=== PATIENT | male | born 1940 | race Caucasian/White ===

== ENCOUNTER → 2020-03-23 | Outpatient (CLI) | payer MEDICARE, OTHER ==
[2020-03-23 14:29] LABS: BASOPHILS # (AUTO) 0.2 X10'3 (0-0.2); BASOPHILS % (AUTO) 1.7 % (0-1); EOSINOPHILS # (AUTO) 0.1 X10'3 (0-0.9); EOSINOPHILS % (AUTO) 1.1 % (0-6); HEMATOCRIT 25.9 % (42.0-52.0); HEMOGLOBIN 8.8 g/dl (14.0-17.9); LYMPHOCYTES # (AUTO) 1.4 X10'3 (1.1-4.8); LYMPHOCYTES % (AUTO) 15.7 % (21-51); MEAN CORPUSCULAR HEMOGLOBIN 29.3 PG (27.0-31.0); MEAN CORPUSCULAR HGB CONC 34.2 g/dL (33.0-36.5); MEAN CORPUSCULAR VOLUME 85.8 FL (78-98); MEAN PLATELET VOLUME 7.3 FL (7.4-10.4); MONOCYTES # (AUTO) 0.7 X10'3 (0-0.9); MONOCYTES % (AUTO) 7.7 % (2-12); NEUTROPHILS # (AUTO) 6.7 X10'3 (1.8-7.7); NEUTROPHILS % (AUTO) 73.8 % (42-75); PLATELET COUNT 327 X10'3 (140-440); RED BLOOD COUNT 3.01 X10'6 (4.70-6.10); RED CELL DISTRIBUTION WIDTH 16.8 % (11.5-14.5)
[2020-03-23 14:42] LABS: ALANINE AMINOTRANSFERASE 15 U/L (12-78); ALBUMIN 3.3 G/DL (3.4-5.0); ALBUMIN/GLOBULIN RATIO 0.8 (1.1-1.5); ALKALINE PHOSPHATASE 67 IU/L (46-116); ANION GAP 9 (8-16); ASPARTATE AMINO TRANSFERASE 19 U/L (10-37); BILIRUBIN,TOTAL 0.2 MG/DL (0.1-1.0); BLOOD UREA NITROGEN 61 MG/DL (7-18); BUN/CREATININE RATIO 19.4 (5.4-32.0); CALCIUM 8.3 MG/DL (8.5-10.1); CHLORIDE 103 MMOL/L (99-107); CREATININE 3.14 MG/DL (0.60-1.10); GLUCOSE 116 MG/DL (70-104); PARTIAL THROMBOPLASTIN TIME 30 SECONDS (22-32); POTASSIUM 5.1 MMOL/L (3.5-5.1); SODIUM 133 MMOL/L (135-145); TOTAL CARBON DIOXIDE 20.7 MMOL/L (24-32); TOTAL PROTEIN 7.4 G/DL (6.4-8.2); eGFR 19 ML/MIN
== END | disposition home or self-care (01) ==
LOC: LAB 13:39
PROVIDERS: ATTEND Internal Medicine Cardiovascular Disease
DX: R07.9 Chest pain, unspecified (principal); R06.02 Shortness of breath
CPT/HCPCS: 36415; 71046; 80053; 85025; 85610; 85730

== ENCOUNTER 2020-03-28 09:11 | Day surgery (SDC) | payer MEDICARE, OTHER ==
[~2020-03-28] VITALS: Ht 172.7 cm; Wt 69.4 kg
[2020-03-28] VITALS (11 sets, daily range): BP systolic 142–178; BP diastolic 54–72
[2020-03-28] MEDS ORDERED: normal saline 1,000 ML IV SCH (09:40)
[2020-03-28] MEDS ORDERED: LORazepam 0.5 MG tablet PO PRN (09:40)
[2020-03-28] MEDS ORDERED: diphenhydrAMINE 25mg capsule PO PRN (09:40)
[2020-03-28] MEDS ORDERED: nitroGLYCERIN 0.4mg SUBLingual tab SL PRN (09:40)
[2020-03-28] MEDS ORDERED: CIPR250T4 PO (11:10)
[2020-03-28] MEDS ORDERED: SODI650T29 PO (11:10)
[2020-03-28] MEDS ORDERED: NITR1PAT68 SL (11:10)
[2020-03-28] MEDS ORDERED: AMLO10TA13 PO (11:10)
[2020-03-28] MEDS ORDERED: FLO0.4C PO (11:10)
[2020-03-28] MEDS ORDERED: EPOE200015 (11:10)
[2020-03-28] MEDS ORDERED: ALBU8.5H8 INH (11:10)
[2020-03-28] MEDS ORDERED: LOSA25TA41 PO (11:10)
[2020-03-28] MEDS ORDERED: midazolam 2 mg/2 ml injection ONE (14:06)
[2020-03-28] MEDS ORDERED: LIDOcaine 1% (10mg/ml)w/preservative injection 20ml MDV ONE (14:06)
[2020-03-28] MEDS ORDERED: fentaNYL/PF 50MCG/1 ML 2ML syringe ONE (14:06)
[2020-03-28] MEDS ORDERED: iohexol 350MG/ML 100ml bottle IV ONE (14:06)
[2020-03-28] MEDS ORDERED: iohexol 350 MG/ML 50ML vial IV ONE ×3 (14:06→15:01)
[2020-03-28] MEDS ORDERED: hydrALAZINE 20mg/ml inj. IV ONE ×2 (15:13→15:27)
[2020-03-28] MEDS ORDERED: OXAZEpam 15mg capsule PO PRN (16:10)
[2020-03-28] MEDS ORDERED: HYDROcodone/acetaminophen 5mg/325mg tablet PO PRN (16:10)
[2020-03-28] MEDS ORDERED: HYDROcodone/acetaminophen 10/325mg tab PO PRN (16:10)
[2020-03-28] MEDS ORDERED: ondansetron/PF 4mg/2ml inj IV PRN (16:10)
[2020-03-28] MEDS ORDERED: proCHLORperazine 10 MG/2 ml inj IV PRN (16:10)
== END 2020-03-28 21:00 | disposition home or self-care (01) ==
LOC: SSTAY O 09:11
PROVIDERS: ATTEND Internal Medicine Cardiovascular Disease
DX: R94.39 Abnormal result of other cardiovascular function study (principal); I25.118 Atherosclerotic heart disease of native coronary artery with other forms of angina pectoris; I25.82 Chronic total occlusion of coronary artery; K21.9 Gastro-esophageal reflux disease without esophagitis; I12.0 Hypertensive chronic kidney disease with stage 5 chronic kidney disease or end stage renal disease; N18.5 Chronic kidney disease, stage 5; J44.9 Chronic obstructive pulmonary disease, unspecified; N40.1 Benign prostatic hyperplasia with lower urinary tract symptoms; N13.8 Other obstructive and reflux uropathy; D63.8 Anemia in other chronic diseases classified elsewhere; M19.90 Unspecified osteoarthritis, unspecified site; Z98.890 Other specified postprocedural states; Z88.7 Allergy status to serum and vaccine; Z79.899 Other long term (current) drug therapy; Z87.891 Personal history of nicotine dependence; F12.90 Cannabis use, unspecified, uncomplicated
CPT/HCPCS: 75630; 93005; 93458; 99152; 99153; C1769; J0360; J1644; J2001; J2250; J3010; J7030; Q0163; Q9967; A4620; A6258

== ENCOUNTER 2020-04-10 10:36 | Inpatient (IN) | payer MEDICARE, OTHER ==
[~2020-04-10] VITALS: Ht 174 cm; Wt 82.5 kg
[~2020-04-10 10:36] MED LIST: ALBU8.5H8 INH; AMLO10TA13 PO; CIPR250T4 PO; EPOE200015; FLO0.4C PO; LIDOcaine 2% (20 mg/ml) 5ml cardiac syringe ONE; LOSA25TA41 PO; MAGNESIUM SULFATE 4 MEQ/ML (5gm/10ml) injection ONE; NITR1PAT68 SL; SODI650T29 PO; albumin (human) 25% 100 ML IV solution IV ONE; aminocaproic acid 250 MG/1 ML inj. ONE; calcium chloride 100 MG/1 ML inj IV ONE; heparin 1,000 units/ml 10ml inj ONE; heparin 10,000 units/1 ML INJ ONE; methylPREDNISolone sod. succ. 500mg inj ONE; papaverine 30 mg/ml 2ml inj. ONE; phenylephrine 10mg/ml inj. ONE; potassium Cl 2 mEq/ml inj IV ONE; sodium bicarbonate (8.4%) 1 mEq/ml syringe ONE
[2020-04-10] MEDS ORDERED: aspirin 81mg tab.chew PO ONE (11:00)
[2020-04-10 11:26] LABS: BASOPHILS # (AUTO) 0.1 X10'3 (0-0.2); BASOPHILS % (AUTO) 1.3 % (0-1); EOSINOPHILS # (AUTO) 0.2 X10'3 (0-0.9); EOSINOPHILS % (AUTO) 2.8 % (0-6); HEMATOCRIT 25.7 % (42.0-52.0); HEMOGLOBIN 8.6 g/dl (14.0-17.9); LYMPHOCYTES # (AUTO) 1.2 X10'3 (1.1-4.8); LYMPHOCYTES % (AUTO) 13.3 % (21-51); MEAN CORPUSCULAR HEMOGLOBIN 28.8 PG (27.0-31.0); MEAN CORPUSCULAR HGB CONC 33.6 g/dL (33.0-36.5); MEAN CORPUSCULAR VOLUME 85.8 FL (78-98); MONOCYTES # (AUTO) 0.9 X10'3 (0-0.9); MONOCYTES % (AUTO) 9.9 % (2-12); NEUTROPHILS # (AUTO) 6.3 X10'3 (1.8-7.7); NEUTROPHILS % (AUTO) 72.7 % (42-75); PLATELET COUNT 321 X10'3 (140-440); RED BLOOD COUNT 2.99 X10'6 (4.70-6.10); RED CELL DISTRIBUTION WIDTH 18.1 % (11.5-14.5); WHITE BLOOD COUNT 8.7 X10'3 (4.5-11.0)
--- NOTE | 2020-04-10 11:35 | NUR ---
relieving RN for break, pt is resting quietly on [facility], no c/o chest pain/discomfort, was referred to ER by Dr Liz, pt thinks he is having a bypass surgery on , but is not sure
[2020-04-10 11:41] LABS: ALANINE AMINOTRANSFERASE 17 U/L (12-78); ALBUMIN 3.6 G/DL (3.4-5.0); ALKALINE PHOSPHATASE 58 IU/L (46-116); ANION GAP 9 (8-16); ASPARTATE AMINO TRANSFERASE 17 U/L (10-37); BILIRUBIN,TOTAL 0.3 MG/DL (0.1-1.0); BLOOD UREA NITROGEN 50 MG/DL (7-18); BUN/CREATININE RATIO 16.6 (5.4-32.0); CALCIUM 8.5 MG/DL (8.5-10.1); CHLORIDE 105 MMOL/L (99-107); CREATININE 3.01 MG/DL (0.60-1.10); GLUCOSE 101 MG/DL (70-104); POTASSIUM 5.5 MMOL/L (3.5-5.1); SODIUM 132 MMOL/L (135-145); TOTAL CARBON DIOXIDE 17.6 MMOL/L (24-32); TOTAL PROTEIN 7.2 G/DL (6.4-8.2); eGFR 20 ML/MIN
--- NOTE | 2020-04-10 11:49 | NUR ---
attempted IV x2, no success, another RN to try
[2020-04-10] MEDS ORDERED: potassium Cl 20 mEq SR tablet PO PRN ×2 (12:25)
[2020-04-10] MEDS ORDERED: magnesium 4gm in 100ml NS 100 ML IV PRN (12:25)
[2020-04-10] MEDS ORDERED: acetaminophen 325mg tablet PO PRN (12:25)
[2020-04-10] MEDS ORDERED: morphine 2 MG/ML inj. syringe IV PRN (12:25)
[2020-04-10] MEDS ORDERED: magnesium Cl slow-release 64mg tablet PO PRN (12:25)
[2020-04-10] MEDS ORDERED: magnesium 2GM in 50ml NS 50 ML IV PRN (12:25)
[2020-04-10] MEDS ORDERED: ondansetron/PF 4mg/2ml inj IV PRN (12:25)
[2020-04-10] MEDS ORDERED: potassium CL 10mEq/100ml bag 100 ML IV PRN ×2 (12:25)
[2020-04-10] MEDS ORDERED: SODI650T29 PO (12:40)
[2020-04-10] MEDS ORDERED: HYDR-4069 PO (12:40)
[2020-04-10] MEDS ORDERED: ALBU18HF2 INH (12:47)
--- NOTE | 2020-04-10 15:00 | NUR ---
Patient in room PCU 3014. I have received report from Win RICHARD, awaiting arrival of patient.
--- NOTE | 2020-04-10 15:02 | NUR ---
Patient arrived in stable condition. Pt. offers no complaints at this time. Pt. assessment, 2 RN skin check completed. Placed on tele and patient assessment completed.
[2020-04-10] MEDS ORDERED: hydrALAZINE 20mg/ml inj. IV ONE (15:45)
--- NOTE | 2020-04-10 16:01 | NUR ---
MD notified regarding elevated SBP of 177, new orders to administer hydralazine 5 mg IVP X 1 dose. Administered, will re-assess.
[2020-04-10 16:09] VITALS: BP 177/74
--- NOTE | 2020-04-10 17:19 | NUR ---
Re-assessment of BP is 162/62, trending down. Post void residual was 852 cc's, strath cath'd per MD order. 820 cc's drained. UA sent per MD order.
[2020-04-10] MEDS: sodium bicarbonate (8.4%) inj. 100 MEQ in dextrose 5%-water 1,000 ML IV SCH (17:39)
[2020-04-10 18:00] VITALS: BP 162/61
[2020-04-10 18:14] LABS: CLARITY,URINE CLEAR (Clear); COLOR,URINE YELLOW (Yellow); GLUCOSE, URINE NEGATIVE (Neg); KETONES,URINE NEGATIVE (Neg); LEUKOCYTE ESTERASE ,URINE TRACE (Neg); NITRITES, URINE NEGATIVE (Neg); OCCULT BLOOD,URINE NEGATIVE (Neg); PROTEIN,URINE 100 mg/dl (Neg); UROBILINOGEN,URINE 0.2 E.U/dL (0.2-1.0)
[2020-04-10 18:19] LABS: UA COLLECTION TYPE CLN CATCH MIDSTREAM
--- NOTE | 2020-04-10 18:19 | NUR ---
Problems reprioritized. Patient report given, questions answered & plan of care reviewed with Sulaiman RICHARD. Pt. offers no complaints. Watching t.v. in no distress.
--- NOTE | 2020-04-10 18:23 | NUR ---
Patient in room PCU 3028. I have received report from Lucy RICHARD and had the opportunity to ask questions and assume patient care. Patient awake on bedside report, on sodium bicarb 100 ml/hr and on room air. Patient in no apparent distress.
[2020-04-10 18:37] LABS: BACTERIA,URINE 3+ /HPF (Neg); RBC,URINE NONE SEEN /HPF (0-2); SQUAMOUS EPITHELIAL CELL,UR NONE SEEN /LPF (FEW)
[2020-04-10 18:47] LABS: TOTAL PROTEIN,URINE RANDOM 77.6 MG/DL
[2020-04-10] MEDS: heparin, porcine 5000 units/ml vial SQ SCH (19:46)
[2020-04-10] MEDS: docusate sod 100mg capsule PO SCH (19:49)
[2020-04-10] MEDS: K and/or MAG REPLACEMENT MC SCH (20:00)
[2020-04-10 22:00] VITALS: BP 152/58
[2020-04-11] VITALS (11 sets, daily range): BP systolic 141–193; BP diastolic 53–72
[2020-04-11 05:13] LABS: ALANINE AMINOTRANSFERASE 13 U/L (12-78); ALBUMIN/GLOBULIN RATIO 0.9 (1.1-1.5); ALKALINE PHOSPHATASE 54 IU/L (46-116); ANION GAP 10 (8-16); ASPARTATE AMINO TRANSFERASE 15 U/L (10-37); BILIRUBIN,TOTAL 0.3 MG/DL (0.1-1.0); BLOOD UREA NITROGEN 49 MG/DL (7-18); CALCIUM 8.5 MG/DL (8.5-10.1); CHLORIDE 105 MMOL/L (99-107); CREATININE 2.88 MG/DL (0.60-1.10); GLUCOSE 93 MG/DL (70-104); POTASSIUM 5.3 MMOL/L (3.5-5.1); SODIUM 133 MMOL/L (135-145); TOTAL CARBON DIOXIDE 18.3 MMOL/L (24-32); TOTAL PROTEIN 6.3 G/DL (6.4-8.2); eGFR 21 ML/MIN
[2020-04-11 05:32] LABS: BASOPHILS # (AUTO) 0.1 X10'3 (0-0.2); BASOPHILS % (AUTO) 1.3 % (0-1); EOSINOPHILS # (AUTO) 0.4 X10'3 (0-0.9); EOSINOPHILS % (AUTO) 5.4 % (0-6); HEMATOCRIT 22.8 % (42.0-52.0); HEMOGLOBIN 7.9 g/dl (14.0-17.9); LYMPHOCYTES # (AUTO) 1.1 X10'3 (1.1-4.8); LYMPHOCYTES % (AUTO) 15.2 % (21-51); MEAN CORPUSCULAR HEMOGLOBIN 29.4 PG (27.0-31.0); MEAN CORPUSCULAR HGB CONC 34.4 g/dL (33.0-36.5); MEAN CORPUSCULAR VOLUME 85.5 FL (78-98); MEAN PLATELET VOLUME 7.1 FL (7.4-10.4); MONOCYTES # (AUTO) 0.7 X10'3 (0-0.9); MONOCYTES % (AUTO) 10.6 % (2-12); NEUTROPHILS # (AUTO) 4.7 X10'3 (1.8-7.7); NEUTROPHILS % (AUTO) 67.5 % (42-75); PLATELET COUNT 290 X10'3 (140-440); RED BLOOD COUNT 2.67 X10'6 (4.70-6.10); RED CELL DISTRIBUTION WIDTH 17.4 % (11.5-14.5)
--- NOTE | 2020-04-11 05:37 | NUR ---
Called provider August for bladder scan of greater than 650 ml and was advised to straight catheterize patient. 750 ml of urine was retrieved from straight catheterization.
[2020-04-11] MEDS: sodium bicarbonate (8.4%) inj. 100 MEQ in dextrose 5%-water 1,000 ML IV SCH ×3 (05:50→22:18)
--- NOTE | 2020-04-11 06:38 | NUR ---
Patient in room PCU 3028. I have received report from Glen RICHARD and had the opportunity to ask questions and assume patient care.
--- NOTE | 2020-04-11 06:39 | NUR ---
Problems reprioritized. Patient report given, questions answered & plan of care reviewed with Jane RICHARD.
--- NOTE | 2020-04-11 07:09 | NUR ---
Paged [facility] for line due to hard stick and No forearm lines Re: Aakash Isaacs Rm [id number]. We are needing a line hard stick and no forearm usage. Please and Thank you Jane RICHARD [id number] Addendum: 04/11/20 at 0908 by Jane Mayorga RN Canceled per IV flushed
[2020-04-11] MEDS ORDERED: MESSAGE TO NURSING PO ONE ×5 (07:10→10:00)
[2020-04-11] MEDS ORDERED: dextrose 50%-water 50ml dispensing syringe IV PRN (07:10)
[2020-04-11] MEDS ORDERED: magnesium 2GM in 50ml NS 50 ML IV PRN (07:10)
[2020-04-11] MEDS ORDERED: potassium Cl 20mEq/100mL bag 100 ML IV PRN (07:10)
[2020-04-11] MEDS ORDERED: magnesium 4gm in 100ml NS 100 ML IV PRN (07:10)
[2020-04-11] MEDS ORDERED: potassium Cl 20 mEq SR tablet PO PRN (07:10)
[2020-04-11] MEDS: docusate sod 100mg capsule PO SCH ×2 (08:00→20:10)
[2020-04-11] MEDS: K and/or MAG REPLACEMENT MC SCH ×2 (08:00→20:00)
[2020-04-11] MEDS: heparin, porcine 5000 units/ml vial SQ SCH ×2 (08:26→20:09)
--- NOTE | 2020-04-11 09:09 | NUR ---
Problems reprioritized. Patient report given, questions answered & plan of care reviewed with AMALIA RICHARD in [facility] unit. Patient stable for transfer, transferred via wheelchair and Nurse.
--- NOTE | 2020-04-11 10:37 | NUR ---
PAGER ID: [phone] MESSAGE: rm 316. pt. Aakash Isaacs. pt. needs med rec done. pt. BP is also elevated. last BP was 189/78. please advise. Piedad [id number]
[2020-04-11] MEDS ORDERED: albuterol 2.5 MG/3 ML nebule NEB PRN (10:55)
[2020-04-11 11:05] LABS: ABG BASE EXCESS -5.1 mmol/L (-2.0-2.0); ABG HCO3 18.9 mmol/L (22.0-26.0); ALLEN'S TEST POSITIVE; FCOHb 0.2 % (0.0-3.9); FMetHb 0.1 % (0.0-1.5); FO2Hb 96.7 % (94-97); TOTAL HEMOGLOBIN 8.7 G/dl (14.0-18.0)
--- NOTE | 2020-04-11 11:05 | NUR ---
PAGER ID: [phone] MESSAGE: 316. pt. Aakash Isaacs. pt. BP is still climbing. it's 200/68. can we get a PRN or start his BP meds today? thank you. Piedad [id number]
[2020-04-11 11:30] LABS: PARTIAL THROMBOPLASTIN TIME 32 SECONDS (22-32)
[2020-04-11] MEDS ORDERED: hydrALAZINE 20mg/ml inj. IV PRN (11:30)
[2020-04-11 11:41] LABS: % IRON SATURATION 38 % (11-46); IRON 87 UG/DL (53-167); TOTAL IRON BINDING CAPACITY 231 UG/DL (259-388)
[2020-04-11] MEDS: tamsulosin 0.4mg capsule PO SCH (11:46)
[2020-04-11] MEDS: hydrALAZINE 25 MG tablet PO SCH ×2 (11:46→20:10)
[2020-04-11] MEDS: losartan 25mg tablet PO SCH (11:47)
[2020-04-11] MEDS: amLODIPine 5mg tablet PO SCH (11:47)
--- NOTE | 2020-04-11 18:28 | NUR ---
Problems reprioritized. Patient report given, questions answered & plan of care reviewed with HILARY Vale.
--- NOTE | 2020-04-11 18:30 | NUR ---
Patient in room MED 316. I have received report from Jenny, and had the opportunity to ask questions and assume patient care.
[2020-04-11] MEDS ORDERED: hydrALAZINE 25 MG tablet PO SCH (20:00)
[2020-04-11 20:50] LABS: HEMATOCRIT 26.7 % (42.0-52.0); HEMOGLOBIN 9.1 g/dl (14.0-17.9); MEAN CORPUSCULAR HGB CONC 34.2 g/dL (33.0-36.5); MEAN CORPUSCULAR VOLUME 84.8 FL (78-98); MEAN PLATELET VOLUME 6.9 FL (7.4-10.4); PLATELET COUNT 264 X10'3 (140-440); RED BLOOD COUNT 3.15 X10'6 (4.70-6.10)
[2020-04-12] VITALS (8 sets, daily range): BP systolic 154–170; BP diastolic 56–103
[2020-04-12 05:56] LABS: ALANINE AMINOTRANSFERASE 12 U/L (12-78); ALBUMIN 2.8 G/DL (3.4-5.0); ALBUMIN/GLOBULIN RATIO 0.8 (1.1-1.5); ALKALINE PHOSPHATASE 51 IU/L (46-116); ANION GAP 7 (8-16); ASPARTATE AMINO TRANSFERASE 15 U/L (10-37); BILIRUBIN,TOTAL 0.5 MG/DL (0.1-1.0); BLOOD UREA NITROGEN 44 MG/DL (7-18); BUN/CREATININE RATIO 15.8 (5.4-32.0); CALCIUM 8.4 MG/DL (8.5-10.1); CHLORIDE 104 MMOL/L (99-107); CREATININE 2.79 MG/DL (0.60-1.10); GLUCOSE 97 MG/DL (70-104); MAGNESIUM 1.9 MG/DL (1.5-2.4); POTASSIUM 5.1 MMOL/L (3.5-5.1); SODIUM 134 MMOL/L (135-145); TOTAL CARBON DIOXIDE 22.7 MMOL/L (24-32); TOTAL PROTEIN 6.1 G/DL (6.4-8.2); eGFR 22 ML/MIN
[2020-04-12 06:04] LABS: BASOPHILS # (AUTO) 0.1 X10'3 (0-0.2); BASOPHILS % (AUTO) 1.3 % (0-1); EOSINOPHILS # (AUTO) 0.3 X10'3 (0-0.9); EOSINOPHILS % (AUTO) 4.8 % (0-6); HEMATOCRIT 26.9 % (42.0-52.0); HEMOGLOBIN 9.3 g/dl (14.0-17.9); LYMPHOCYTES # (AUTO) 1.2 X10'3 (1.1-4.8); LYMPHOCYTES % (AUTO) 16.6 % (21-51); MEAN CORPUSCULAR HEMOGLOBIN 29.5 PG (27.0-31.0); MEAN CORPUSCULAR HGB CONC 34.5 g/dL (33.0-36.5); MEAN CORPUSCULAR VOLUME 85.6 FL (78-98); MEAN PLATELET VOLUME 7.2 FL (7.4-10.4); MONOCYTES # (AUTO) 0.9 X10'3 (0-0.9); MONOCYTES % (AUTO) 12.4 % (2-12); NEUTROPHILS # (AUTO) 4.6 X10'3 (1.8-7.7); NEUTROPHILS % (AUTO) 64.9 % (42-75); PLATELET COUNT 247 X10'3 (140-440); RED BLOOD COUNT 3.14 X10'6 (4.70-6.10); RED CELL DISTRIBUTION WIDTH 16.8 % (11.5-14.5); WHITE BLOOD COUNT 7.1 X10'3 (4.5-11.0)
--- NOTE | 2020-04-12 06:06 | NUR ---
Problems reprioritized. Patient report given to Ciara, questions answered & plan of care reviewed with .
--- NOTE | 2020-04-12 06:30 | NUR ---
Patient in room MED 316. I have received report from HILARY varela and had the opportunity to ask questions and assume patient care.
[2020-04-12] MEDS ORDERED: losartan 25mg tablet PO SCH (08:00)
[2020-04-12] MEDS ORDERED: amLODIPine 5mg tablet PO SCH (08:00)
[2020-04-12] MEDS: heparin, porcine 5000 units/ml vial SQ SCH ×2 (08:00→19:49)
[2020-04-12] MEDS: docusate sod 100mg capsule PO SCH ×2 (08:00→19:49)
[2020-04-12] MEDS: K and/or MAG REPLACEMENT MC SCH ×2 (08:00→19:52)
[2020-04-12] MEDS: tamsulosin 0.4mg capsule PO SCH (08:00)
[2020-04-12] MEDS: amLODIPine 5mg tablet PO SCH (08:01)
[2020-04-12] MEDS: hydrALAZINE 25 MG tablet PO SCH ×2 (08:02→19:49)
[2020-04-12] MEDS: losartan 25mg tablet PO SCH (08:02)
[2020-04-12] MEDS: sodium bicarbonate (8.4%) inj. 100 MEQ in dextrose 5%-water 1,000 ML IV SCH (11:39)
[2020-04-12] MEDS ORDERED: Insulin Reg/NS 100units/100mL 100 ML IV SCH (12:51)
[2020-04-12] MEDS ORDERED: potassium Cl 20 mEq SR tablet PO PRN (12:55)
[2020-04-12] MEDS ORDERED: gabapentin 400mg capsule PO ONE (12:55)
[2020-04-12] MEDS ORDERED: magnesium 2GM in 50ml NS 50 ML IV PRN (12:55)
[2020-04-12] MEDS ORDERED: MALTODEXTRIN/FRUCTOSE 0.68 KCAL/ML LIQUID 296ML BOTTLE PO ONE (12:55)
[2020-04-12] MEDS ORDERED: potassium CL 10mEq/100ml bag 100 ML IV PRN (12:55)
[2020-04-12] MEDS ORDERED: magnesium 4gm in 100ml NS 100 ML IV PRN (12:55)
[2020-04-12] MEDS ORDERED: insulin glargine (Lantus) pen - multi-dose SQ PRN (12:55)
[2020-04-12] MEDS ORDERED: dextrose 50%-water 50ml dispensing syringe IV PRN (12:55)
[2020-04-12] MEDS ORDERED: potassium Cl 20mEq/100mL bag 100 ML IV PRN (12:55)
[2020-04-12] MEDS ORDERED: MESSAGE TO NURSING PO ONE ×4 (12:55)
--- NOTE | 2020-04-12 13:54 | NUR ---
Wound care was consulted regarding a "generalized rash" of concern on this pt. At bedside, pt gave consent to be examined but stated he had no skin issues to note. He has no ALOC and moves well in bed. No skin issues were identified on examination and no photos are present in chart. Genital/rosario/groin assessment deferred as pt is of sound mind and states no concern in these areas. No wound care needs at this time
--- NOTE | 2020-04-12 18:30 | NUR ---
Problems reprioritized. Patient report given, questions answered & plan of care reviewed with HILARY Borges.
--- NOTE | 2020-04-12 19:03 | NUR ---
Patient in room MED 316. I have received report from Cathi RICHARD and had the opportunity to ask questions and assume patient care.
[2020-04-12] MEDS ORDERED: mupirocin 2% ointment 22GM NS SCH (20:00)
[2020-04-12] MEDS ORDERED: metoprolol tartrate 12.5mg (1/2 tablet) PO SCH (20:00)
[2020-04-13] VITALS (19 sets, daily range): BP systolic 105–177; BP diastolic 38–77
[2020-04-13] MEDS ORDERED: MALTODEXTRIN/FRUCTOSE 0.68 KCAL/ML LIQUID 296ML BOTTLE PO ONE (03:00)
[2020-04-13] MEDS: sodium bicarbonate (8.4%) inj. 100 MEQ in dextrose 5%-water 1,000 ML IV SCH (03:15)
[2020-04-13] MEDS ORDERED: ceFAZolin 1000mg inj ONE (05:13)
[2020-04-13 05:18] LABS: BASOPHILS # (AUTO) 0.1 X10'3 (0-0.2); BASOPHILS % (AUTO) 1.4 % (0-1); EOSINOPHILS # (AUTO) 0.3 X10'3 (0-0.9); EOSINOPHILS % (AUTO) 4.1 % (0-6); HEMATOCRIT 28.6 % (42.0-52.0); HEMOGLOBIN 9.8 g/dl (14.0-17.9); LYMPHOCYTES # (AUTO) 1.4 X10'3 (1.1-4.8); LYMPHOCYTES % (AUTO) 18.1 % (21-51); MEAN CORPUSCULAR HEMOGLOBIN 29.6 PG (27.0-31.0); MEAN CORPUSCULAR HGB CONC 34.4 g/dL (33.0-36.5); MEAN CORPUSCULAR VOLUME 85.8 FL (78-98); MONOCYTES # (AUTO) 1.1 X10'3 (0-0.9); MONOCYTES % (AUTO) 14.1 % (2-12); NEUTROPHILS # (AUTO) 4.9 X10'3 (1.8-7.7); NEUTROPHILS % (AUTO) 62.3 % (42-75); PLATELET COUNT 201 X10'3 (140-440); RED BLOOD COUNT 3.33 X10'6 (4.70-6.10); RED CELL DISTRIBUTION WIDTH 16.5 % (11.5-14.5); WHITE BLOOD COUNT 7.8 X10'3 (4.5-11.0)
[2020-04-13 05:30] LABS: ALANINE AMINOTRANSFERASE 10 U/L (12-78); ALBUMIN 2.8 G/DL (3.4-5.0); ALBUMIN/GLOBULIN RATIO 0.8 (1.1-1.5); ALKALINE PHOSPHATASE 51 IU/L (46-116); ANION GAP 9 (8-16); ASPARTATE AMINO TRANSFERASE 15 U/L (10-37); BILIRUBIN,TOTAL 0.6 MG/DL (0.1-1.0); BLOOD UREA NITROGEN 45 MG/DL (7-18); BUN/CREATININE RATIO 16.5 (5.4-32.0); CALCIUM 8.2 MG/DL (8.5-10.1); CHLORIDE 102 MMOL/L (99-107); CREATININE 2.72 MG/DL (0.60-1.10); GLUCOSE 97 MG/DL (70-104); MAGNESIUM 1.8 MG/DL (1.5-2.4); POTASSIUM 5.1 MMOL/L (3.5-5.1); SODIUM 132 MMOL/L (135-145); TOTAL CARBON DIOXIDE 21.4 MMOL/L (24-32); TOTAL PROTEIN 6.2 G/DL (6.4-8.2); eGFR 23 ML/MIN
[2020-04-13] MEDS ORDERED: gabapentin 400mg capsule PO ONE (05:30)
[2020-04-13] MEDS ORDERED: mupirocin 2% nasal ointment 1gm UD NS SCH (05:30)
[2020-04-13] MEDS ORDERED: Insulin Reg/NS 100units/100mL 100 ML IV SCH ×2 (05:30→11:36)
[2020-04-13] MEDS ORDERED: metoprolol tartrate 12.5mg (1/2 tablet) PO SCH (05:30)
[2020-04-13] MEDS ORDERED: cefazolin/dext.iso 2gm/50ml 50 ML IV ONE (05:30)
[2020-04-13] MEDS ORDERED: vancomycin/NS 1 GM ADD-VANTAGE 250 ML IV ONE (05:30)
[2020-04-13] MEDS ORDERED: insulin glargine (Lantus) pen - multi-dose SQ PRN ×2 (05:30→11:40)
[2020-04-13] MEDS ORDERED: ringers solution, lacted 1,000 ML IV ONE (05:30)
[2020-04-13] MEDS ORDERED: famotidine 20mg tablet PO ONE (06:00)
[2020-04-13] MEDS ORDERED: LORazepam 2 mg/ml vial IV ONE (06:00)
--- NOTE | 2020-04-13 06:33 | NUR ---
Problems reprioritized. Patient report given, questions answered & plan of care reviewed with Piedad RICHARD.
--- NOTE | 2020-04-13 06:38 | NUR ---
Patient in room MED 316. I have received report from HILARY Borges and had the opportunity to ask questions and assume patient care.
[2020-04-13] MEDS ORDERED: LORazepam 2 mg/ml vial ONE (06:51)
[2020-04-13] MEDS ORDERED: DOPamine/D5W 400mg/250ml bag IV ONE (06:55)
[2020-04-13] MEDS ORDERED: isoflurane 100ml inhalation liquid IH ONE (06:55)
[2020-04-13] MEDS ORDERED: aminocaproic acid 250 MG/1 ML inj. ONE (06:55)
[2020-04-13] MEDS ORDERED: SUFENTANIL CITRATE 50 MCG/ML 2ml ampule IV ONE (07:01)
[2020-04-13] MEDS ORDERED: propofol inj 20 ML IV ONE (07:23)
[2020-04-13] MEDS ORDERED: rocuronium 10mg/ml inj IV ONE ×2 (07:23→11:23)
[2020-04-13] MEDS ORDERED: LIDOcaine 2% (20mg/ml) 5ml vial ONE ×2 (07:23→11:23)
[2020-04-13 07:40] LABS: ABG HCO3 20.7 mmol/L (22.0-26.0); ABG OXYGEN SATURATION 99.3 % (94-97); ABG PCO2 36.2 mmHg (35.0-48.0); ABG PO2 389.4 mmHg (75.0-100.0); CL (ABG) 104 mmol/L (98-110); FCOHb 0.3 % (0.0-3.9); FMetHb 0.4 % (0.0-1.5); FO2Hb 98.6 % (94-97); GLUCOSE (ABG) 53 mg/dl (70-140); IONIZED CA (ABG) 1.11 mmol/L (1.10-1.43); K (ABG) 4.8 mmol/L (3.5-5.0)
[2020-04-13] MEDS: tamsulosin 0.4mg capsule PO SCH (08:00)
[2020-04-13 08:14] LABS: OCCULT BLOOD STOOL NEGATIVE (Neg)
[2020-04-13] MEDS ORDERED: papaverine 30 mg/ml 2ml inj. IA ONE (08:16)
[2020-04-13] MEDS ORDERED: heparin 10,000 units/1 ML INJ IR ONE (08:16)
[2020-04-13 08:35] LABS: ABG BASE EXCESS -4.3 mmol/L (-2.0-2.0); ABG HCO3 21.2 mmol/L (22.0-26.0); ABG OXYGEN SATURATION 97.7 % (94-97); ABG PCO2 40.4 mmHg (35.0-48.0); ABG PO2 123.3 mmHg (75.0-100.0); CL (ABG) 104 mmol/L (98-110); FCOHb 0.2 % (0.0-3.9); FMetHb 0.6 % (0.0-1.5); FO2Hb 96.9 % (94-97); GLUCOSE (ABG) 61 mg/dl (70-140); IONIZED CA (ABG) 1.09 mmol/L (1.10-1.43); K (ABG) 4.8 mmol/L (3.5-5.0); TOTAL HEMOGLOBIN 8.6 G/dl (14.0-18.0)
[2020-04-13] MEDS ORDERED: albuterol 2.5 MG/3 ML nebule NEB PRN (08:40)
[2020-04-13 09:26] LABS: ABG HCO3 23.5 mmol/L (22.0-26.0); ABG OXYGEN SATURATION 99.2 % (94-97); ABG PCO2 38.3 mmHg (35.0-48.0); ABG PO2 545.1 mmHg (75.0-100.0); CL (ABG) 99 mmol/L (98-110); FCOHb 0.4 % (0.0-3.9); FMetHb 0.3 % (0.0-1.5); FO2Hb 98.5 % (94-97); GLUCOSE (ABG) 106 mg/dl (70-140); IONIZED CA (ABG) 0.85 mmol/L (1.10-1.43); K (ABG) 5.2 mmol/L (3.5-5.0); TOTAL HEMOGLOBIN 8.6 G/dl (14.0-18.0)
[2020-04-13 09:46] LABS: ABG BASE EXCESS VENOUS -0.6 mmol/L; ABG PCO2 VENOUS 45.4 mmHg; ABG PO2 VENOUS 50.6 mmHg; CL (ABG) 99 mmol/L (98-110); FCOHb VENOUS 0.2 %; FHHb VENOUS 13.4 %; FMetHb VENOUS 0.3 %; FO2Hb VENOUS 86.1 %; GLUCOSE (ABG) 125 mg/dl (70-140); K (ABG) 5.7 mmol/L (3.5-5.0); TOTAL HEMOGLOBIN 9.8 G/dl (14.0-18.0)
[2020-04-13] MEDS ORDERED: MESSAGE TO NURSING PO ONE (10:00)
[2020-04-13 10:31] LABS: ABG BASE EXCESS -2.3 mmol/L (-2.0-2.0); ABG HCO3 22.6 mmol/L (22.0-26.0); ABG OXYGEN SATURATION 98.9 % (94-97); ABG PCO2 38.9 mmHg (35.0-48.0); ABG PO2 228.8 mmHg (75.0-100.0); CL (ABG) 103 mmol/L (98-110); FCOHb 0.5 % (0.0-3.9); FMetHb 0.3 % (0.0-1.5); FO2Hb 98.1 % (94-97); GLUCOSE (ABG) 143 mg/dl (70-140); IONIZED CA (ABG) 0.99 mmol/L (1.10-1.43); K (ABG) 5.3 mmol/L (3.5-5.0); TOTAL HEMOGLOBIN 8.8 G/dl (14.0-18.0)
[2020-04-13 10:45] LABS: ABG BASE EXCESS -1.7 mmol/L (-2.0-2.0); ABG HCO3 23.5 mmol/L (22.0-26.0); ABG OXYGEN SATURATION 98.9 % (94-97); ABG PCO2 41.5 mmHg (35.0-48.0); ABG PO2 378.2 mmHg (75.0-100.0); CL (ABG) 101 mmol/L (98-110); FCOHb 0.2 % (0.0-3.9); FMetHb 0.6 % (0.0-1.5); FO2Hb 98.1 % (94-97); GLUCOSE (ABG) 142 mg/dl (70-140); IONIZED CA (ABG) 1.36 mmol/L (1.10-1.43); K (ABG) 5.3 mmol/L (3.5-5.0); TOTAL HEMOGLOBIN 8.7 G/dl (14.0-18.0)
[2020-04-13 11:21] LABS: ABG BASE EXCESS -2.8 mmol/L (-2.0-2.0); ABG OXYGEN SATURATION 98.7 % (94-97); ABG PCO2 38.1 mmHg (35.0-48.0); ABG PO2 194.7 mmHg (75.0-100.0); CL (ABG) 103 mmol/L (98-110); FCOHb 0.4 % (0.0-3.9); FMetHb 0.5 % (0.0-1.5); FO2Hb 97.8 % (94-97); GLUCOSE (ABG) 133 mg/dl (70-140); IONIZED CA (ABG) 1.12 mmol/L (1.10-1.43); K (ABG) 4.9 mmol/L (3.5-5.0); TOTAL HEMOGLOBIN 10.2 G/dl (14.0-18.0)
[2020-04-13] MEDS ORDERED: niCARDipine-NS 40mg/200ml IVPB 200 ML IV PRN (11:36)
[2020-04-13] MEDS ORDERED: nitroGLYCERIN-Tridil 50MG/D5W 250 ML IV PRN ×2 (11:36→11:59)
[2020-04-13] MEDS ORDERED: DOPamine 400mg/D5W 250ml 250 ML IV PRN ×2 (11:36→11:50)
[2020-04-13] MEDS ORDERED: ondansetron/PF 4mg/2ml inj IV PRN (11:40)
[2020-04-13] MEDS ORDERED: normal saline 250ml IV soln 250 ML IV PRN (11:40)
[2020-04-13] MEDS ORDERED: Neutra Phos packet PO PRN (11:40)
[2020-04-13] MEDS ORDERED: HYDROcodone/acetaminophen 10/325mg tab PO PRN (11:40)
[2020-04-13] MEDS ORDERED: potassium Cl 20mEq/100mL bag 100 ML IV PRN (11:40)
[2020-04-13] MEDS ORDERED: acetaminophen 325mg tablet PO PRN ×2 (11:40)
[2020-04-13] MEDS ORDERED: sodium phosphate inj. 30 MMOL in dextrose 5%-water 250 ML IV PRN (11:40)
[2020-04-13] MEDS ORDERED: mineral oil 133ml enema RC PRN (11:40)
[2020-04-13] MEDS ORDERED: magnesium hydroxide 30ml (MOM) UD suspension PO PRN (11:40)
[2020-04-13] MEDS ORDERED: magnesium citrate 296ml oral solution PO PRN (11:40)
[2020-04-13] MEDS ORDERED: metoclopramide 5 mg/ml inj IV PRN (11:40)
[2020-04-13] MEDS ORDERED: sodium phosphate inj. 15 MMOL in dextrose 5%-water 250 ML IV PRN (11:40)
[2020-04-13] MEDS ORDERED: potassium Cl 20 mEq SR tablet PO PRN (11:40)
[2020-04-13] MEDS ORDERED: magnesium 2GM in 50ml NS 50 ML IV PRN (11:40)
[2020-04-13] MEDS ORDERED: magnesium 4gm in 100ml NS 100 ML IV PRN (11:40)
[2020-04-13] MEDS ORDERED: morphine 4 MG/ML inj SYRINge IV PRN ×2 (11:40)
[2020-04-13] MEDS ORDERED: dextrose 50%-water 50ml dispensing syringe IV PRN (11:40)
[2020-04-13] MEDS ORDERED: pantoprazole 40 MG vial IV ONE (11:40)
[2020-04-13] MEDS ORDERED: bisacodyl 10mg suppository rectal RC PRN (11:40)
--- NOTE | 2020-04-13 11:45 | NUR ---
Received to room 2045, accompanied by MDs and surgical crew. Placed on ventilator, to youth nutritional monitor, arterial line and PA line pressure monitored. Chest tubes to suction at 20 cm. Chatman cath to gravity drainage. Dressings are dry and intact. See assessment record. All vasoactive drugs are infusing via central line.
[2020-04-13] MEDS: Insulin Reg/NS 100units/100mL 100 ML IV SCH (11:55)
[2020-04-13] MEDS ORDERED: niCARdipine I.V. 50 MG in normal saline 250ml IV soln 230 ML IV PRN (11:58)
[2020-04-13 12:02] LABS: BASOPHILS # (AUTO) 0.1 X10'3 (0-0.2); BASOPHILS % (AUTO) 0.4 % (0-1); EOSINOPHILS # (AUTO) 0.2 X10'3 (0-0.9); EOSINOPHILS % (AUTO) 1.3 % (0-6); HEMATOCRIT 30.6 % (42.0-52.0); HEMOGLOBIN 10.4 g/dl (14.0-17.9); LYMPHOCYTES # (AUTO) 0.8 X10'3 (1.1-4.8); LYMPHOCYTES % (AUTO) 5.2 % (21-51); MEAN CORPUSCULAR HEMOGLOBIN 29.3 PG (27.0-31.0); MEAN CORPUSCULAR VOLUME 86.2 FL (78-98); MEAN PLATELET VOLUME 7.4 FL (7.4-10.4); MONOCYTES # (AUTO) 0.7 X10'3 (0-0.9); MONOCYTES % (AUTO) 4.6 % (2-12); NEUTROPHILS # (AUTO) 14.3 X10'3 (1.8-7.7); NEUTROPHILS % (AUTO) 88.5 % (42-75); PLATELET COUNT 152 X10'3 (140-440); RED BLOOD COUNT 3.55 X10'6 (4.70-6.10); RED CELL DISTRIBUTION WIDTH 16.4 % (11.5-14.5); WHITE BLOOD COUNT 16.1 X10'3 (4.5-11.0)
[2020-04-13 12:16] LABS: ABG BASE EXCESS -3.8 mmol/L (-2.0-2.0); ABG HCO3 21.8 mmol/L (22.0-26.0); ABG OXYGEN SATURATION 98.4 % (94-97); ABG PCO2 (T) 41.8 mmHg (35.0-48.0); ABG PO2 (T) 162.9 mmHg (75.0-100.0); FCOHb 0.3 % (0.0-3.9); FMetHb 0.2 % (0.0-1.5); FO2Hb 97.9 % (94-97); PEEP 5 cm H2O; RESPIRATORY RATE 12 b/min; TIDAL VOLUME 550 mL; TOTAL HEMOGLOBIN 11.2 G/dl (14.0-18.0)
[2020-04-13 12:17] LABS: ALANINE AMINOTRANSFERASE 14 U/L (12-78); ALBUMIN 2.8 G/DL (3.4-5.0); ALBUMIN/GLOBULIN RATIO 1.2 (1.1-1.5); ALKALINE PHOSPHATASE 39 IU/L (46-116); ANION GAP 7 (8-16); ASPARTATE AMINO TRANSFERASE 24 U/L (10-37); BILIRUBIN,TOTAL 0.8 MG/DL (0.1-1.0); BLOOD UREA NITROGEN 40 MG/DL (7-18); BUN/CREATININE RATIO 16.6 (5.4-32.0); CALCIUM 7.7 MG/DL (8.5-10.1); CHLORIDE 104 MMOL/L (99-107); CREATININE 2.41 MG/DL (0.60-1.10); GLUCOSE 130 MG/DL (70-104); MAGNESIUM 3.3 MG/DL (1.5-2.4); PHOSPHORUS 3.2 MG/DL (2.3-4.5); POTASSIUM 4.8 MMOL/L (3.5-5.1); SODIUM 135 MMOL/L (135-145); TOTAL CARBON DIOXIDE 24.2 MMOL/L (24-32); TOTAL PROTEIN 5.2 G/DL (6.4-8.2); eGFR 26 ML/MIN
[2020-04-13 12:30] LABS: PARTIAL THROMBOPLASTIN TIME 32 SECONDS (22-32)
[2020-04-13] MEDS: albumin (Human) 5% 250ml 250 ML IV PRN ×2 (12:40→15:45)
[2020-04-13] MEDS: sodium chloride 0.45% 1,000 ML IV SCH (12:51)
[2020-04-13] MEDS: gabapentin 300mg capsule PO SCH ×2 (12:51→20:42)
[2020-04-13] MEDS: NS IV SCH (13:17)
[2020-04-13] MEDS: [UNRECOGNIZED DRUG - OTHER] IV SCH (13:17)
[2020-04-13] MEDS: ceFAZolin 1GM/D5W- ADD-VANTAGE 50 ML IV SCH (15:45)
--- NOTE | 2020-04-13 16:32 | NUR ---
patient on spont for 2 hours doing well. Still very sleepy and did not pass weaning parameters. Will try again in 30min
[2020-04-13 17:35] LABS: BASOPHILS % (AUTO) 0.3 % (0-1); EOSINOPHILS % (AUTO) 0 % (0-6); HEMATOCRIT 27.2 % (42.0-52.0); HEMOGLOBIN 9.3 g/dl (14.0-17.9); LYMPHOCYTES # (AUTO) 0.2 X10'3 (1.1-4.8); LYMPHOCYTES % (AUTO) 1.9 % (21-51); MEAN CORPUSCULAR HEMOGLOBIN 29.3 PG (27.0-31.0); MEAN CORPUSCULAR VOLUME 86.2 FL (78-98); MEAN PLATELET VOLUME 7.6 FL (7.4-10.4); MONOCYTES # (AUTO) 0.6 X10'3 (0-0.9); MONOCYTES % (AUTO) 4.8 % (2-12); NEUTROPHILS # (AUTO) 12.1 X10'3 (1.8-7.7); PLATELET COUNT 147 X10'3 (140-440); RED BLOOD COUNT 3.16 X10'6 (4.70-6.10); RED CELL DISTRIBUTION WIDTH 16.5 % (11.5-14.5)
[2020-04-13 17:41] LABS: ABG BASE EXCESS -5.3 mmol/L (-2.0-2.0); ABG HCO3 18.5 mmol/L (22.0-26.0); ABG OXYGEN SATURATION 97.3 % (94-97); ABG PCO2 (T) 30.4 mmHg (35.0-48.0); ABG PO2 (T) 110.4 mmHg (75.0-100.0); FCOHb 0.3 % (0.0-3.9); FMetHb 0.2 % (0.0-1.5); FO2Hb 96.8 % (94-97); PEEP 5 cm H2O; TOTAL HEMOGLOBIN 10.1 G/dl (14.0-18.0)
[2020-04-13 17:45] LABS: ALBUMIN 3.2 G/DL (3.4-5.0); ANION GAP 8 (8-16); BLOOD UREA NITROGEN 41 MG/DL (7-18); CHLORIDE 105 MMOL/L (99-107); CREATININE 2.74 MG/DL (0.60-1.10); GLUCOSE 141 MG/DL (70-104); PHOSPHORUS 3.1 MG/DL (2.3-4.5); SODIUM 135 MMOL/L (135-145); TOTAL CARBON DIOXIDE 22.5 MMOL/L (24-32); eGFR 23 ML/MIN
--- NOTE | 2020-04-13 18:40 | NUR ---
RN Note -urine began coming out peter colored. Flushed with 10 cc saline. No clots or sediment.
[2020-04-13] MEDS: vancomycin/NS 1 GM ADD-VANTAGE 250 ML IV SCH (20:42)
[2020-04-13] MEDS: mupirocin 2% ointment 22GM NS SCH (20:42)
[2020-04-13] MEDS: sennosides/docusate sodium tablet PO SCH (20:42)
[2020-04-14] VITALS (23 sets, daily range): BP systolic 105–156; BP diastolic 30–58
[2020-04-14] MEDS: ceFAZolin 1GM/D5W- ADD-VANTAGE 50 ML IV SCH ×4 (00:30→23:48)
[2020-04-14 03:07] LABS: BASOPHILS % (AUTO) 0.1 % (0-1); EOSINOPHILS % (AUTO) 0 % (0-6); HEMATOCRIT 24.3 % (42.0-52.0); HEMOGLOBIN 8.2 g/dl (14.0-17.9); LYMPHOCYTES # (AUTO) 0.3 X10'3 (1.1-4.8); LYMPHOCYTES % (AUTO) 2.4 % (21-51); MEAN CORPUSCULAR HEMOGLOBIN 29.2 PG (27.0-31.0); MEAN CORPUSCULAR HGB CONC 33.5 g/dL (33.0-36.5); MEAN CORPUSCULAR VOLUME 87.2 FL (78-98); MEAN PLATELET VOLUME 7.9 FL (7.4-10.4); MONOCYTES # (AUTO) 0.9 X10'3 (0-0.9); NEUTROPHILS # (AUTO) 12.1 X10'3 (1.8-7.7); NEUTROPHILS % (AUTO) 90.5 % (42-75); PLATELET COUNT 126 X10'3 (140-440); RED BLOOD COUNT 2.79 X10'6 (4.70-6.10); RED CELL DISTRIBUTION WIDTH 16.8 % (11.5-14.5); WHITE BLOOD COUNT 13.4 X10'3 (4.5-11.0)
[2020-04-14 03:11] LABS: PARTIAL THROMBOPLASTIN TIME 28 SECONDS (22-32)
[2020-04-14 03:24] LABS: ALANINE AMINOTRANSFERASE 16 U/L (12-78); ALBUMIN 3.1 G/DL (3.4-5.0); ALBUMIN/GLOBULIN RATIO 1.3 (1.1-1.5); ALKALINE PHOSPHATASE 37 IU/L (46-116); ANION GAP 12 (8-16); ASPARTATE AMINO TRANSFERASE 35 U/L (10-37); BILIRUBIN,TOTAL 0.5 MG/DL (0.1-1.0); BLOOD UREA NITROGEN 43 MG/DL (7-18); BUN/CREATININE RATIO 15.2 (5.4-32.0); CALCIUM 8.1 MG/DL (8.5-10.1); CHLORIDE 104 MMOL/L (99-107); CREATININE 2.82 MG/DL (0.60-1.10); GLUCOSE 136 MG/DL (70-104); MAGNESIUM 2.8 MG/DL (1.5-2.4); PHOSPHORUS 4.7 MG/DL (2.3-4.5); POTASSIUM 5.2 MMOL/L (3.5-5.1); SODIUM 135 MMOL/L (135-145); TOTAL CARBON DIOXIDE 19.3 MMOL/L (24-32); TOTAL PROTEIN 5.4 G/DL (6.4-8.2); eGFR 22 ML/MIN
[2020-04-14] MEDS: HYDROcodone/acetaminophen 10/325mg tab PO PRN (04:17)
--- NOTE | 2020-04-14 05:00 | NUR ---
RN Note -Sat pt up at side of bed. Put vest on because pt is having difficulty following sternal precautions, and also having difficultly holding heart pillow due to weakness in upper extremities. Stood pt up at bedside. Tolerated well. Chest tube drainage increased with movement, still sanguinous.
[2020-04-14 07:06] LABS: HEMATOCRIT 23.5 % (42.0-52.0); HEMOGLOBIN 7.8 g/dl (14.0-17.9); MEAN CORPUSCULAR HEMOGLOBIN 28.9 PG (27.0-31.0); MEAN CORPUSCULAR HGB CONC 33.3 g/dL (33.0-36.5); MEAN CORPUSCULAR VOLUME 86.9 FL (78-98); MEAN PLATELET VOLUME 7.7 FL (7.4-10.4); PLATELET COUNT 116 X10'3 (140-440); RED BLOOD COUNT 2.71 X10'6 (4.70-6.10); RED CELL DISTRIBUTION WIDTH 16.5 % (11.5-14.5); WHITE BLOOD COUNT 13.7 X10'3 (4.5-11.0)
[2020-04-14] MEDS ORDERED: aspirin 325mg tablet, delayed-release (Ecotrin) PO SCH (08:00)
[2020-04-14] MEDS: metoprolol tartrate 12.5mg (1/2 tablet) PO SCH ×2 (08:00→19:53)
[2020-04-14] MEDS ORDERED: hydrALAZINE 25 MG tablet PO ONE (08:20)
[2020-04-14] MEDS: NS IV SCH (08:25)
[2020-04-14] MEDS: [UNRECOGNIZED DRUG - OTHER] IV SCH (08:25)
[2020-04-14] MEDS ORDERED: hydrALAZINE 25 MG tablet PO SCH (08:30)
[2020-04-14] MEDS: tamsulosin 0.4mg capsule PO SCH (08:32)
[2020-04-14] MEDS: sennosides/docusate sodium tablet PO SCH ×2 (08:32→19:52)
[2020-04-14] MEDS: atorvastatin 10mg tablet PO SCH (08:32)
[2020-04-14] MEDS: mupirocin 2% ointment 22GM NS SCH ×2 (08:32→23:08)
[2020-04-14] MEDS: gabapentin 300mg capsule PO SCH ×3 (08:32→21:14)
[2020-04-14] MEDS: vancomycin/NS 1 GM ADD-VANTAGE 250 ML IV SCH ×2 (09:30→19:52)
--- NOTE | 2020-04-14 10:24 | NUR ---
Art line, and PA DC'ed per orders. patient tolerated well
[2020-04-14] MEDS: Insulin Reg/NS 100units/100mL 100 ML IV SCH (19:34)
[2020-04-14] MEDS: hydrALAZINE 25 MG tablet PO SCH (19:53)
[2020-04-14] MEDS ORDERED: tamsulosin 0.4mg capsule PO SCH (21:00)
[2020-04-14] MEDS: losartan 25mg tablet PO SCH (21:15)
[2020-04-15] VITALS (22 sets, daily range): BP systolic 100–147; BP diastolic 44–84
[2020-04-15 05:21] LABS: BASOPHILS % (AUTO) 0.2 % (0-1); EOSINOPHILS % (AUTO) 0 % (0-6); HEMOGLOBIN 7.2 g/dl (14.0-17.9); LYMPHOCYTES # (AUTO) 0.8 X10'3 (1.1-4.8); MEAN CORPUSCULAR HEMOGLOBIN 29.3 PG (27.0-31.0); MEAN CORPUSCULAR HGB CONC 33.2 g/dL (33.0-36.5); MEAN CORPUSCULAR VOLUME 88.1 FL (78-98); MEAN PLATELET VOLUME 9.2 FL (7.4-10.4); MONOCYTES # (AUTO) 1.3 X10'3 (0-0.9); MONOCYTES % (AUTO) 10.2 % (2-12); NEUTROPHILS # (AUTO) 10.7 X10'3 (1.8-7.7); NEUTROPHILS % (AUTO) 83.6 % (42-75); PLATELET COUNT 123 X10'3 (140-440); RED BLOOD COUNT 2.46 X10'6 (4.70-6.10); RED CELL DISTRIBUTION WIDTH 16.8 % (11.5-14.5); WHITE BLOOD COUNT 12.8 X10'3 (4.5-11.0)
[2020-04-15 05:24] LABS: ALBUMIN 2.6 G/DL (3.4-5.0); ANION GAP 7 (8-16); BLOOD UREA NITROGEN 53 MG/DL (7-18); BUN/CREATININE RATIO 15.8 (5.4-32.0); CHLORIDE 102 MMOL/L (99-107); CREATININE 3.36 MG/DL (0.60-1.10); GLUCOSE 116 MG/DL (70-104); MAGNESIUM 2.7 MG/DL (1.5-2.4); PHOSPHORUS 5.9 MG/DL (2.3-4.5); POTASSIUM 5.4 MMOL/L (3.5-5.1); SODIUM 131 MMOL/L (135-145); TOTAL CARBON DIOXIDE 21.9 MMOL/L (24-32); eGFR 18 ML/MIN
[2020-04-15] MEDS: [UNRECOGNIZED DRUG - OTHER] IV SCH (05:25)
[2020-04-15] MEDS: NS IV SCH (05:25)
[2020-04-15 05:34] LABS: HEMATOCRIT 21.7 % (42.0-52.0)
--- NOTE | 2020-04-15 06:32 | NUR ---
Problems reprioritized. Patient report given, questions answered & plan of care reviewed with HILARY Daniels.
[2020-04-15] MEDS: mupirocin 2% ointment 22GM NS SCH (08:00)
[2020-04-15] MEDS: sennosides/docusate sodium tablet PO SCH ×2 (08:29→20:36)
[2020-04-15] MEDS: aspirin 81mg tablet.DR PO SCH (08:30)
[2020-04-15] MEDS: tamsulosin 0.4mg capsule PO SCH (08:30)
[2020-04-15] MEDS: pantoprazole 40mg Tablet.DR PO SCH (08:33)
[2020-04-15] MEDS: atorvastatin 10mg tablet PO SCH (08:33)
[2020-04-15] MEDS: gabapentin 300mg capsule PO SCH (08:34)
[2020-04-15] MEDS: metoprolol tartrate 12.5mg (1/2 tablet) PO SCH ×2 (08:35→20:00)
[2020-04-15] MEDS: hydrALAZINE 25 MG tablet PO SCH ×2 (08:35→20:36)
[2020-04-15] MEDS ORDERED: furosemide 40mg/4ml inj IV ONE (09:55)
[2020-04-15] MEDS ORDERED: epoetin 20,000 units/ml inj SQ ONE (10:15)
--- NOTE | 2020-04-15 11:42 | NUR ---
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 No PO meal documentation hx since post-op; RD d/w RN since pt has been receiving meals though PO unknown. CT -220ml today per EMR. Pt seen by RD for written/verbal CABG/HH diet eds w/ RD contact information and Tony coupons provided. Pt is agreeable to strawberry Tony smoothie BIDLD; MD notified. Reports dislikes chocolate; dietary notified. [facility] 04/10 receiving routine senna. Will continue to monitor for additional protein needs pending documented PO hx post-op. Rec: 1. advance diet as medically indicated to renal; pending PO hx post-op 2. strawberry Tony smoothie BIDLD 3. routine bowel care; consider additional w/ constipation 4. weekly wts Addendum: 04/15/20 at [address] Amended: Links added.
[2020-04-15] MEDS: JUVEN Smoothie Arginine/Glut./Ca2+Bmb (Juven 19.3pkt) 240ml cup PO SCH ×2 (12:30→17:30)
[2020-04-15] MEDS: sodium chloride 0.45% 1,000 ML IV SCH (15:00)
[2020-04-15] MEDS: sodium bicarbonate 650mg tablet PO SCH ×2 (15:00→21:13)
--- NOTE | 2020-04-15 18:20 | NUR ---
Patient in room ICU 2045. I have received report from HILARY Daniels and had the opportunity to ask questions and assume patient care.
[2020-04-15] MEDS: FERROUS SULFATE 142 MG TABLET.ER (45mg elemental) PO SCH (20:36)
[2020-04-15] MEDS: losartan 25mg tablet PO SCH (21:14)
[2020-04-15] MEDS: HYDROcodone/acetaminophen 10/325mg tab PO PRN (21:17)
[2020-04-16] VITALS (18 sets, daily range): BP systolic 108–171; BP diastolic 42–81
[2020-04-16] MEDS: NS IV SCH (05:27)
[2020-04-16] MEDS: [UNRECOGNIZED DRUG - OTHER] IV SCH (05:27)
--- NOTE | 2020-04-16 06:27 | NUR ---
Problems reprioritized. Patient report given, questions answered & plan of care reviewed with HILARY Granados.
--- NOTE | 2020-04-16 06:29 | NUR ---
Patient in room ICU 2045. I have received report from Ben RICHARD and had the opportunity to ask questions and assume patient care.
--- NOTE | 2020-04-16 06:55 | NUR ---
Critical H/H of Hg 7.1 and Hct 21.2 reported from lab. New orders from Chepe Reardon to transfuse one unit
--- NOTE | 2020-04-16 07:12 | NUR ---
Order from Chepe Reardon, okay to DC insulin gtt since it has been getting "non admin'd" and okay to stop checking patients blood sugars.
[2020-04-16 07:17] LABS: ALBUMIN 2.5 G/DL (3.4-5.0); ANION GAP 9 (8-16); BLOOD UREA NITROGEN 66 MG/DL (7-18); BUN/CREATININE RATIO 17.6 (5.4-32.0); CALCIUM 7.9 MG/DL (8.5-10.1); CHLORIDE 101 MMOL/L (99-107); CREATININE 3.74 MG/DL (0.60-1.10); GLUCOSE 99 MG/DL (70-104); MAGNESIUM 2.6 MG/DL (1.5-2.4); PHOSPHORUS 5.2 MG/DL (2.3-4.5); POTASSIUM 5.3 MMOL/L (3.5-5.1); SODIUM 130 MMOL/L (135-145); TOTAL CARBON DIOXIDE 19.6 MMOL/L (24-32); eGFR 16 ML/MIN
[2020-04-16 07:18] LABS: BASOPHILS % (AUTO) 0.3 % (0-1); EOSINOPHILS % (AUTO) 0.1 % (0-6); HEMOGLOBIN 7.1 g/dl (14.0-17.9); LYMPHOCYTES # (AUTO) 0.8 X10'3 (1.1-4.8); LYMPHOCYTES % (AUTO) 7.5 % (21-51); MEAN CORPUSCULAR HEMOGLOBIN 29.5 PG (27.0-31.0); MEAN CORPUSCULAR HGB CONC 33.5 g/dL (33.0-36.5); MEAN CORPUSCULAR VOLUME 88.1 FL (78-98); MEAN PLATELET VOLUME 8.2 FL (7.4-10.4); MONOCYTES # (AUTO) 1.4 X10'3 (0-0.9); MONOCYTES % (AUTO) 13.1 % (2-12); NEUTROPHILS # (AUTO) 8.7 X10'3 (1.8-7.7); PLATELET COUNT 136 X10'3 (140-440); RED CELL DISTRIBUTION WIDTH 16.8 % (11.5-14.5)
[2020-04-16] MEDS: hydrALAZINE 25 MG tablet PO SCH ×2 (07:25→21:02)
[2020-04-16] MEDS: sennosides/docusate sodium tablet PO SCH ×2 (07:25→21:02)
[2020-04-16] MEDS: pantoprazole 40mg Tablet.DR PO SCH (07:26)
[2020-04-16] MEDS: sodium bicarbonate 650mg tablet PO SCH ×3 (07:26→21:02)
[2020-04-16] MEDS: FERROUS SULFATE 142 MG TABLET.ER (45mg elemental) PO SCH ×2 (07:26→21:02)
[2020-04-16] MEDS: tamsulosin 0.4mg capsule PO SCH (07:26)
[2020-04-16] MEDS: aspirin 81mg tablet.DR PO SCH (07:26)
[2020-04-16] MEDS: atorvastatin 10mg tablet PO SCH (07:26)
[2020-04-16] MEDS: metoprolol tartrate 12.5mg (1/2 tablet) PO SCH ×2 (07:27→21:01)
[2020-04-16 07:29] LABS: HEMATOCRIT 21.2 % (42.0-52.0)
[2020-04-16] MEDS ORDERED: potassium Cl 20 mEq SR tablet PO PRN (07:35)
[2020-04-16] MEDS ORDERED: potassium Cl 20mEq/100mL bag 100 ML IV PRN (07:35)
[2020-04-16] MEDS ORDERED: magnesium 4gm in 100ml NS 100 ML IV PRN (07:35)
[2020-04-16] MEDS ORDERED: magnesium 2GM in 50ml NS 50 ML IV PRN (07:35)
[2020-04-16] MEDS: amLODIPine 5mg tablet PO SCH (07:51)
[2020-04-16] MEDS: epoetin 20,000 units/ml inj SQ SCH (07:52)
[2020-04-16] MEDS: magnesium Cl slow-release 64mg tablet PO SCH ×2 (08:00→20:00)
--- NOTE | 2020-04-16 10:31 | NUR ---
Report called to Meenakshi RICHARD in [facility]. All questions answered. Patient will be transferred to room 314
--- NOTE | 2020-04-16 11:06 | NUR ---
Patient transferred to room 314 in [facility]. All belongings sent with patient. Patient transferred with blood transfusing, and told next primary, Meenakshi RICHARD, that next blood transfusion vital signs are at 11:17. Patient stable at time of transfer Addendum: 04/16/20 at 1132 by oRberta Daniel RN Also told Meenakshi that Chepe Reardon would like de la cruz catheter to come out today as well.
--- NOTE | 2020-04-16 11:15 | NUR ---
Patient in room MED 314. I have received report from Roberta RICHARD and had the opportunity to ask questions and assume patient care.
[2020-04-16] MEDS: JUVEN Smoothie Arginine/Glut./Ca2+Bmb (Juven 19.3pkt) 240ml cup PO SCH ×2 (12:30→17:30)
--- NOTE | 2020-04-16 13:04 | NUR ---
CABG Consult: Pt seen by JUANA this admit for diet eds post-op; see prior note. LBKim 04/10 and aware planning additional bowel care regimen per RN. Addendum: 04/16/20 at [address] Amended: Links added.
--- NOTE | 2020-04-16 14:46 | NUR ---
Chatman Catheter removed pt tolerated well.
--- NOTE | 2020-04-16 18:00 | NUR ---
Problems reprioritized. Patient report given, questions answered & plan of care reviewed with Kavin RICHARD.
--- NOTE | 2020-04-16 18:25 | NUR ---
Patient in room MED 314. I have received report from Suzanne, and had the opportunity to ask questions and assume patient care.
[2020-04-16 21:36] LABS: BASOPHILS # (AUTO) 0.1 X10'3 (0-0.2); BASOPHILS % (AUTO) 0.6 % (0-1); EOSINOPHILS % (AUTO) 0.2 % (0-6); HEMOGLOBIN 8.1 g/dl (14.0-17.9); LYMPHOCYTES % (AUTO) 8.3 % (21-51); MEAN CORPUSCULAR HEMOGLOBIN 29.7 PG (27.0-31.0); MEAN CORPUSCULAR HGB CONC 33.8 g/dL (33.0-36.5); MEAN CORPUSCULAR VOLUME 87.8 FL (78-98); MEAN PLATELET VOLUME 8.5 FL (7.4-10.4); MONOCYTES # (AUTO) 1.6 X10'3 (0-0.9); MONOCYTES % (AUTO) 13.3 % (2-12); NEUTROPHILS # (AUTO) 9.1 X10'3 (1.8-7.7); NEUTROPHILS % (AUTO) 77.6 % (42-75); PLATELET COUNT 155 X10'3 (140-440); RED BLOOD COUNT 2.74 X10'6 (4.70-6.10); RED CELL DISTRIBUTION WIDTH 16.5 % (11.5-14.5); WHITE BLOOD COUNT 11.7 X10'3 (4.5-11.0)
[2020-04-17 02:00] VITALS: BP 146/47
[2020-04-17 02:28] LABS: BASOPHILS # (AUTO) 0.1 X10'3 (0-0.2); BASOPHILS % (AUTO) 0.6 % (0-1); EOSINOPHILS % (AUTO) 0.4 % (0-6); HEMATOCRIT 23.4 % (42.0-52.0); HEMOGLOBIN 7.8 g/dl (14.0-17.9); LYMPHOCYTES % (AUTO) 8.6 % (21-51); MEAN CORPUSCULAR HEMOGLOBIN 29.4 PG (27.0-31.0); MEAN CORPUSCULAR HGB CONC 33.5 g/dL (33.0-36.5); MEAN CORPUSCULAR VOLUME 87.9 FL (78-98); MEAN PLATELET VOLUME 8.8 FL (7.4-10.4); MONOCYTES # (AUTO) 1.6 X10'3 (0-0.9); NEUTROPHILS # (AUTO) 8.9 X10'3 (1.8-7.7); NEUTROPHILS % (AUTO) 76.4 % (42-75); PLATELET COUNT 164 X10'3 (140-440); RED BLOOD COUNT 2.66 X10'6 (4.70-6.10); RED CELL DISTRIBUTION WIDTH 16.2 % (11.5-14.5); WHITE BLOOD COUNT 11.7 X10'3 (4.5-11.0)
[2020-04-17 02:33] LABS: ALBUMIN 2.4 G/DL (3.4-5.0); ANION GAP 9 (8-16); BLOOD UREA NITROGEN 81 MG/DL (7-18); BUN/CREATININE RATIO 21.8 (5.4-32.0); CALCIUM 7.6 MG/DL (8.5-10.1); CHLORIDE 102 MMOL/L (99-107); CREATININE 3.72 MG/DL (0.60-1.10); GLUCOSE 96 MG/DL (70-104); POTASSIUM 5.5 MMOL/L (3.5-5.1); SODIUM 131 MMOL/L (135-145); TOTAL CARBON DIOXIDE 19.6 MMOL/L (24-32); eGFR 16 ML/MIN
[2020-04-17 06:30] VITALS: BP 131/44
[2020-04-17 08:37] LABS: MAGNESIUM 2.4 MG/DL (1.5-2.4)
[2020-04-17] MEDS: hydrALAZINE 25 MG tablet PO SCH ×2 (09:13→20:04)
[2020-04-17] MEDS: aspirin 81mg tablet.DR PO SCH (09:14)
[2020-04-17] MEDS: FERROUS SULFATE 142 MG TABLET.ER (45mg elemental) PO SCH ×2 (09:15→20:04)
[2020-04-17] MEDS: atorvastatin 10mg tablet PO SCH (09:15)
[2020-04-17] MEDS: magnesium Cl slow-release 64mg tablet PO SCH ×2 (09:15→20:00)
[2020-04-17] MEDS: amLODIPine 5mg tablet PO SCH (09:15)
[2020-04-17] MEDS: sodium bicarbonate 650mg tablet PO SCH ×3 (09:23→20:03)
[2020-04-17] MEDS: sennosides/docusate sodium tablet PO SCH ×2 (09:24→20:04)
[2020-04-17] MEDS: pantoprazole 40mg Tablet.DR PO SCH (09:24)
[2020-04-17] MEDS: metoprolol tartrate 25mg tablet PO SCH ×2 (09:24→20:04)
[2020-04-17 11:00] VITALS: BP 165/52
[2020-04-17] MEDS: JUVEN Smoothie Arginine/Glut./Ca2+Bmb (Juven 19.3pkt) 240ml cup PO SCH ×3 (12:30→20:06)
[2020-04-17 14:00] VITALS: BP 162/53
[2020-04-17 18:00] VITALS: BP 178/63
[2020-04-17] MEDS: tamsulosin 0.4mg capsule PO SCH (20:03)
[2020-04-17 22:00] VITALS: BP 159/52
[2020-04-18 02:00] VITALS: BP 155/47
[2020-04-18 06:00] VITALS: BP 176/63
[2020-04-18 06:11] LABS: ALBUMIN 2.6 G/DL (3.4-5.0); ANION GAP 11 (8-16); BASOPHILS # (AUTO) 0.1 X10'3 (0-0.2); BASOPHILS % (AUTO) 0.6 % (0-1); BLOOD UREA NITROGEN 85 MG/DL (7-18); BUN/CREATININE RATIO 24.4 (5.4-32.0); CALCIUM 8.2 MG/DL (8.5-10.1); CHLORIDE 104 MMOL/L (99-107); CREATININE 3.48 MG/DL (0.60-1.10); EOSINOPHILS # (AUTO) 0.1 X10'3 (0-0.9); EOSINOPHILS % (AUTO) 0.4 % (0-6); GLUCOSE 96 MG/DL (70-104); HEMATOCRIT 26.7 % (42.0-52.0); HEMOGLOBIN 8.9 g/dl (14.0-17.9); LYMPHOCYTES # (AUTO) 1.4 X10'3 (1.1-4.8); LYMPHOCYTES % (AUTO) 10.6 % (21-51); MEAN CORPUSCULAR HEMOGLOBIN 29.9 PG (27.0-31.0); MEAN CORPUSCULAR HGB CONC 33.5 g/dL (33.0-36.5); MEAN CORPUSCULAR VOLUME 89.1 FL (78-98); MEAN PLATELET VOLUME 8.2 FL (7.4-10.4); MONOCYTES # (AUTO) 1.5 X10'3 (0-0.9); MONOCYTES % (AUTO) 11.5 % (2-12); NEUTROPHILS # (AUTO) 10.2 X10'3 (1.8-7.7); NEUTROPHILS % (AUTO) 76.9 % (42-75); PLATELET COUNT 255 X10'3 (140-440); POTASSIUM 5.3 MMOL/L (3.5-5.1); RED CELL DISTRIBUTION WIDTH 16.3 % (11.5-14.5); SODIUM 133 MMOL/L (135-145); TOTAL CARBON DIOXIDE 17.7 MMOL/L (24-32); WHITE BLOOD COUNT 13.3 X10'3 (4.5-11.0); eGFR 17 ML/MIN
--- NOTE | 2020-04-18 06:15 | NUR ---
Patient in room MED 314. I have received report from roberto varela and had the opportunity to ask questions and assume patient care.
--- NOTE | 2020-04-18 06:27 | NUR ---
Problems reprioritized. Patient report given to Donavan, questions answered & plan of care reviewed with .
[2020-04-18] MEDS ORDERED: METO25TA6 PO (07:18)
[2020-04-18] MEDS ORDERED: ATOR10TA PO (07:18)
[2020-04-18] MEDS ORDERED: SENN-166 PO (07:18)
[2020-04-18] MEDS ORDERED: HYDR-4353 PO (07:18)
[2020-04-18] MEDS ORDERED: ASPI-1071 PO (07:18)
[2020-04-18] MEDS: tamsulosin 0.4mg capsule PO SCH (08:04)
[2020-04-18] MEDS: hydrALAZINE 25 MG tablet PO SCH (08:04)
[2020-04-18] MEDS: sennosides/docusate sodium tablet PO SCH (08:05)
[2020-04-18] MEDS: sodium bicarbonate 650mg tablet PO SCH ×2 (08:05→13:53)
[2020-04-18] MEDS: FERROUS SULFATE 142 MG TABLET.ER (45mg elemental) PO SCH (08:05)
[2020-04-18] MEDS: atorvastatin 10mg tablet PO SCH (08:05)
[2020-04-18] MEDS: aspirin 81mg tablet.DR PO SCH (08:05)
[2020-04-18] MEDS: pantoprazole 40mg Tablet.DR PO SCH (08:05)
[2020-04-18] MEDS: magnesium Cl slow-release 64mg tablet PO SCH (08:05)
[2020-04-18 08:57] LABS: MAGNESIUM 2.5 MG/DL (1.5-2.4)
[2020-04-18 10:00] VITALS: BP 171/60
[2020-04-18] MEDS: epoetin 20,000 units/ml inj SQ SCH (10:06)
[2020-04-18] MEDS: amLODIPine 5mg tablet PO SCH (10:07)
[2020-04-18] MEDS: metoprolol tartrate 25mg tablet PO SCH (12:20)
[2020-04-18 14:00] VITALS: BP 158/66
--- NOTE | 2020-04-18 16:00 | NUR ---
DISCHARGE INSTRUCTIONS COMPLETE,REVIEWED THOROUGHLY WITH ON PHONE,AFTER CHANGING PRESCRIPTIONS FROM [facility] (REQUESTED IN AM )TO [facility] [address],REVIEWED [facility] B[facility] NOT COVERED BY INSURANCE AND PROVIDING WALKER.rEVIEWED CARDIAC MOBILITY PRECAUTIONS ,NEED FOR STABILIZING VEST,FREQ USE OF IS.sl DC'D FROM [facility] ,SITE CLEAR,PT DC'D VIA W/C WITH ALL BELONGINGS AFTER REVIEWING ALL F/U APPTS
== END 2020-04-18 17:15 | disposition home or self-care (01) | DRG 235 ==
LOC: ER 10:38 → ED HOLD 12:22 → UNDOADMIN 12:26 → ED HOLD 14:49 → PCU 3S 14:49 → MED 3N 04-11 09:14 → ICU 2S 04-13 08:37 → MED 3N 04-13 08:37 → ICU 2S 04-16 11:35 → MED 3N 04-16 11:35
PROVIDERS: ADMIT Internal Medicine; ATTEND Internal Medicine Critical Care Medicine
PROC: 30233N1 Transfusion of Nonautologous Red Blood Cells into Peripheral Vein, Percutaneous Approach (ICD-10-PCS; 2020-04-11)
PROC: 30233N1 Transfusion of Nonautologous Red Blood Cells into Peripheral Vein, Percutaneous Approach (ICD-10-PCS; 2020-04-12)
PROC: 021009W Bypass Coronary Artery, One Artery from Aorta with Autologous Venous Tissue, Open Approach (ICD-10-PCS; 2020-04-13)
PROC: 06BQ4ZZ Excision of Left Saphenous Vein, Percutaneous Endoscopic Approach (ICD-10-PCS; 2020-04-13)
PROC: 06BP4ZZ Excision of Right Saphenous Vein, Percutaneous Endoscopic Approach (ICD-10-PCS; 2020-04-13)
PROC: 5A1221Z Performance of Cardiac Output, Continuous (ICD-10-PCS; 2020-04-13)
PROC: B24BZZ4 Ultrasonography of Heart with Aorta, Transesophageal (ICD-10-PCS; 2020-04-13)
PROC: 30233N1 Transfusion of Nonautologous Red Blood Cells into Peripheral Vein, Percutaneous Approach (ICD-10-PCS; 2020-04-13)
PROC: 02100Z9 Bypass Coronary Artery, One Artery from Left Internal Mammary, Open Approach (ICD-10-PCS; principal; 2020-04-13 06:55)
PROC: 30233N1 Transfusion of Nonautologous Red Blood Cells into Peripheral Vein, Percutaneous Approach (ICD-10-PCS; 2020-04-16)
DX: I25.110 Atherosclerotic heart disease of native coronary artery with unstable angina pectoris (principal); N17.0 Acute kidney failure with tubular necrosis; I12.0 Hypertensive chronic kidney disease with stage 5 chronic kidney disease or end stage renal disease; N18.5 Chronic kidney disease, stage 5; I31.0 Chronic adhesive pericarditis; N17.9 Acute kidney failure, unspecified; D62 Acute posthemorrhagic anemia; I70.0 Atherosclerosis of aorta; N25.89 Other disorders resulting from impaired renal tubular function; Z88.7 Allergy status to serum and vaccine; D63.8 Anemia in other chronic diseases classified elsewhere; I67.9 Cerebrovascular disease, unspecified; R00.1 Bradycardia, unspecified; N40.0 Benign prostatic hyperplasia without lower urinary tract symptoms; Z20.828 Contact with and (suspected) exposure to other viral communicable diseases
CPT/HCPCS: 0232T; 93312; 93325; 99285; 36415; 36430; 36600; 71045; 71046; 78707; 80048; 80053; 81001; 82272; 82330; 82435; 82570; 82803; 82947; 82948; 83036; 83540; 83550; 83735; 83880; 84100; 84132; 84133; 84156; 84295; 84300; 84484; 85018; 85025; 85027; 85347; 85384; 85610; 85730; 86885; 86900; 86901; 86920; 87081; 87088; 87635; 93005; 93880; 93922; 93925; 93970; 94002; 94010; 94640; 94760; 97110; 97116; 97161; 97530; A4618; A6258; A6402; A6446; A6449; A7000; A7048; A9562; C1713; C1751; C9113; G0378; J0360; J0690; J1265; J1644; J1815; J1940; J2001; J2060; J2150; J2370; J2440; J2704; J2930; J3370; J3480; J3490; J7030; J7040; J7050; J7070; J7120; P9016; P9047; Q4081

== ENCOUNTER 2020-07-06 10:28 | Day surgery (SDC) | payer MEDICARE, OTHER ==
[~2020-07-06] VITALS: Ht 172.7 cm; Wt 70.3 kg
[~2020-07-06 10:28] MED LIST changes: +ALBU18HF2 INH; -ALBU8.5H8 INH; +ASPI-611 PO; +ATOR10TA70 PO; -CIPR250T4 PO; +DOCUMENT DATE & TIME OF BETA-BLOCKER PO ONE; -EPOE200015; +HYDR-4069 PO; -LIDOcaine 2% (20 mg/ml) 5ml cardiac syringe ONE; -LOSA25TA41 PO; -MAGNESIUM SULFATE 4 MEQ/ML (5gm/10ml) injection ONE; +METO25TA6 PO; -NITR1PAT68 SL; -albumin (human) 25% 100 ML IV solution IV ONE; +albuterol 2.5 MG/3 ML nebule NEB ONE; -aminocaproic acid 250 MG/1 ML inj. ONE; -calcium chloride 100 MG/1 ML inj IV ONE; +ceFAZolin 2gm in dextrose, iso 50 ML IV ONE; +famotidine 20mg tablet PO ONE; -heparin 1,000 units/ml 10ml inj ONE; -heparin 10,000 units/1 ML INJ ONE; -methylPREDNISolone sod. succ. 500mg inj ONE; -papaverine 30 mg/ml 2ml inj. ONE; -phenylephrine 10mg/ml inj. ONE; -potassium Cl 2 mEq/ml inj IV ONE; +ringers solution, lacted 1,000 ML IV SCH; -sodium bicarbonate (8.4%) 1 mEq/ml syringe ONE
[2020-07-06 10:40] VITALS: BP 146/59
[2020-07-06] MEDS ORDERED: phenylephrine inj 50 MG in normal saline 250ml IV soln 245 ML IV PRN (11:00)
[2020-07-06] MEDS ORDERED: nitroPRUSSIDE in NS 100 ML IV PRN (11:00)
[2020-07-06 11:45] LABS: BASOPHILS # (AUTO) 0.1 X10'3 (0-0.2); BASOPHILS % (AUTO) 0.8 % (0-1); EOSINOPHILS # (AUTO) 0.1 X10'3 (0-0.9); EOSINOPHILS % (AUTO) 0.5 % (0-6); HEMATOCRIT 31.1 % (42.0-52.0); HEMOGLOBIN 10.3 g/dl (14.0-17.9); LYMPHOCYTES # (AUTO) 0.8 X10'3 (1.1-4.8); LYMPHOCYTES % (AUTO) 5.2 % (21-51); MEAN CORPUSCULAR HEMOGLOBIN 28.2 PG (27.0-31.0); MEAN CORPUSCULAR HGB CONC 33.1 g/dL (33.0-36.5); MEAN CORPUSCULAR VOLUME 85.3 FL (78-98); MEAN PLATELET VOLUME 7.2 FL (7.4-10.4); MONOCYTES # (AUTO) 1.1 X10'3 (0-0.9); MONOCYTES % (AUTO) 7.2 % (2-12); NEUTROPHILS # (AUTO) 13.1 X10'3 (1.8-7.7); NEUTROPHILS % (AUTO) 86.3 % (42-75); PLATELET COUNT 371 X10'3 (140-440); RED BLOOD COUNT 3.65 X10'6 (4.70-6.10); RED CELL DISTRIBUTION WIDTH 17.4 % (11.5-14.5); WHITE BLOOD COUNT 15.2 X10'3 (4.5-11.0)
[2020-07-06 11:56] LABS: PARTIAL THROMBOPLASTIN TIME 35 SECONDS (22-32)
[2020-07-06 12:00] LABS: ALANINE AMINOTRANSFERASE 10 U/L (12-78); ALBUMIN/GLOBULIN RATIO 0.7 (1.1-1.5); ALKALINE PHOSPHATASE 71 IU/L (46-116); ANION GAP 13 (8-16); ASPARTATE AMINO TRANSFERASE 21 U/L (10-37); BILIRUBIN,TOTAL 0.3 MG/DL (0.1-1.0); BLOOD UREA NITROGEN 68 MG/DL (7-18); BUN/CREATININE RATIO 18.4 (5.4-32.0); CALCIUM 8.1 MG/DL (8.5-10.1); CHLORIDE 102 MMOL/L (99-107); CREATININE 3.69 MG/DL (0.60-1.10); GLUCOSE 99 MG/DL (70-104); POTASSIUM 4.8 MMOL/L (3.5-5.1); SODIUM 132 MMOL/L (135-145); TOTAL CARBON DIOXIDE 17.3 MMOL/L (24-32); TOTAL PROTEIN 7.3 G/DL (6.4-8.2); eGFR 16 ML/MIN
[2020-07-06] MEDS ORDERED: nitroPRUSSIDE sod inj. 50 MG in dextrose 5%-water 248 ML IV SCH (12:45)
[2020-07-06] MEDS ORDERED: hydrALAZINE 20mg/ml inj. IV PRN (12:45)
[2020-07-06] MEDS ORDERED: morphine 4 MG/ML inj SYRINge IV PRN (12:45)
[2020-07-06] MEDS ORDERED: morphine 2 MG/ML inj. syringe IV PRN (12:45)
[2020-07-06] MEDS ORDERED: ondansetron/PF 4mg/2ml inj IV PRN ×2 (12:45→15:05)
[2020-07-06] MEDS ORDERED: phenylephrine inj 50 MG in normal saline 250ml IV soln 250 ML IV SCH (12:45)
[2020-07-06] MEDS ORDERED: labetalol 20mg/4ml (5mg/ml) syringe IV PRN (12:45)
[2020-07-06] MEDS ORDERED: fentaNYL/PF 50MCG/1 ML 2ML syringe IV PRN ×2 (12:45)
[2020-07-06] MEDS ORDERED: ringers solution, lacted 1,000 ML IV SCH (12:45)
[2020-07-06] MEDS ORDERED: normal saline 1000ml 1,000 ML IV SCH ×2 (14:10→15:05)
--- NOTE | 2020-07-06 14:45 | NUR ---
DR FORTUNE SPOKE WITH PT AND INFORMED HIM HE WOULD NEED MORE TREATMENT BEFORE HE WOULD BE READY FOR SURGERY. DR FORTUNE AND PT DISCUSSED THAT SURGERY WOULD BE CANCELLED TODAY, THAT PT MAY GO HOME, AND MADE PLANS FOR RESCHEDULING. PT DRESSED SELF, 18 GAUGE PIV L FA DC/D CATH TIP INTACT. TRANSPORTED VIA WHEELCHAIR TO DAUGHTER IN PRIVATE VEHICLE TO HOME.
[2020-07-06] MEDS ORDERED: HYDROcodone/acetaminophen 10/325mg tab PO PRN (15:05)
[2020-07-06] MEDS ORDERED: mag hydrox/Alum hydrox/simeth 30ml oral suspension PO PRN (15:05)
[2020-07-06] MEDS ORDERED: magnesium hydroxide 30ml (MOM) UD suspension PO PRN (15:05)
[2020-07-06] MEDS ORDERED: potassium CL 10mEq/100ml bag 100 ML IV PRN ×2 (15:05)
[2020-07-06] MEDS ORDERED: potassium Cl 20 mEq SR tablet PO PRN ×2 (15:05)
[2020-07-06] MEDS ORDERED: HYDROcodone/acetaminophen 5mg/325mg tablet PO PRN (15:05)
[2020-07-06] MEDS ORDERED: magnesium 4gm in 100ml NS 100 ML IV PRN (15:05)
[2020-07-06] MEDS ORDERED: magnesium 2GM in 50ml NS 50 ML IV PRN (15:05)
[2020-07-06] MEDS ORDERED: acetaminophen 325mg tablet PO PRN ×2 (15:05)
[2020-07-06] MEDS ORDERED: magnesium Cl slow-release 64mg tablet PO PRN (15:05)
[2020-07-06] MEDS ORDERED: K and/or MAG REPLACEMENT MC SCH (20:00)
[2020-07-06] MEDS ORDERED: temazepam 15mg capsule PO PRN (21:00)
[2020-07-07] MEDS ORDERED: enoxaparin 40mg/0.4ml syringe SUBCUT SCH (08:00)
== END 2020-07-06 18:08 | disposition home or self-care (01) ==
LOC: PAS 10:28 → EDSTATUS 14:00 → PAS IN 17:58 → PAS 18:08
PROVIDERS: ATTEND Surgery
DX: I65.23 Occlusion and stenosis of bilateral carotid arteries (principal); Z53.8 Procedure and treatment not carried out for other reasons; I25.10 Atherosclerotic heart disease of native coronary artery without angina pectoris; D64.9 Anemia, unspecified; G47.30 Sleep apnea, unspecified; J44.9 Chronic obstructive pulmonary disease, unspecified; N40.0 Benign prostatic hyperplasia without lower urinary tract symptoms; I12.0 Hypertensive chronic kidney disease with stage 5 chronic kidney disease or end stage renal disease; N18.5 Chronic kidney disease, stage 5; Z95.1 Presence of aortocoronary bypass graft; Z79.899 Other long term (current) drug therapy; Z79.82 Long term (current) use of aspirin; Z87.891 Personal history of nicotine dependence; Z88.7 Allergy status to serum and vaccine
CPT/HCPCS: 36415; 70490; 71045; 80053; 82948; 85025; 85610; 85730; 86885; 86900; 86901; 87081; 93005; 95816; J7120

== ENCOUNTER 2021-07-04 15:10 | Outpatient (CLI) | payer MEDICARE, OTHER ==
[~2021-07-04 15:10] MED LIST changes: -DOCUMENT DATE & TIME OF BETA-BLOCKER PO ONE; +LOP25T PO; -METO25TA6 PO; -albuterol 2.5 MG/3 ML nebule NEB ONE; -ceFAZolin 2gm in dextrose, iso 50 ML IV ONE; -famotidine 20mg tablet PO ONE; -ringers solution, lacted 1,000 ML IV SCH
[2021-07-04 16:56] LABS: BASOPHILS # (AUTO) 0.1 X10'3 (0-0.2); BASOPHILS % (AUTO) 0.9 % (0-1); EOSINOPHILS # (AUTO) 0.2 X10'3 (0-0.9); EOSINOPHILS % (AUTO) 2.2 % (0-6); LYMPHOCYTES # (AUTO) 1.3 X10'3 (1.1-4.8); LYMPHOCYTES % (AUTO) 14.1 % (21-51); MEAN CORPUSCULAR HEMOGLOBIN 26.2 PG (27.0-31.0); MEAN CORPUSCULAR HGB CONC 33.1 g/dL (33.0-36.5); MEAN CORPUSCULAR VOLUME 79.3 FL (78-98); MEAN PLATELET VOLUME 6.8 FL (7.4-10.4); MONOCYTES # (AUTO) 0.8 X10'3 (0-0.9); MONOCYTES % (AUTO) 8.9 % (2-12); NEUTROPHILS # (AUTO) 6.6 X10'3 (1.8-7.7); NEUTROPHILS % (AUTO) 73.9 % (42-75); PRE OP HEMATOCRIT 25.5 % (42.0-52.0); PRE OP PLATELET COUNT 326 X10'3 (140-440); RED BLOOD COUNT 3.21 X10'6 (4.70-6.10); RED CELL DISTRIBUTION WIDTH 22.1 % (11.5-14.5)
[2021-07-04 16:57] LABS: PRE OP HEMOGLOBIN 8.4 g/dL (14.0-17.9)
[2021-07-04 17:05] LABS: UA COLLECTION TYPE CLN CATCH MIDSTREAM
[2021-07-04 17:06] LABS: CLARITY,URINE CLEAR (Clear); COLOR,URINE STRAW (Yellow); GLUCOSE, URINE NEGATIVE (Neg); KETONES,URINE NEGATIVE (Neg); LEUKOCYTE ESTERASE ,URINE NEGATIVE (Neg); NITRITES, URINE NEGATIVE (Neg); OCCULT BLOOD,URINE TRACE-INTACT (Neg); PROTEIN,URINE 300 mg/dl (Neg); UROBILINOGEN,URINE 0.2 E.U/dL (0.2-1.0)
[2021-07-04 17:07] LABS: PRE OP INR 1.1 INR; PRE OP PROTIME 11.1 SECONDS (9.0-12.0)
[2021-07-04 17:12] LABS: ALBUMIN 3.2 G/DL (3.4-5.0); ALBUMIN/GLOBULIN RATIO 0.7 (1.1-1.5); ALKALINE PHOSPHATASE 57 IU/L (46-116); BLOOD UREA NITROGEN 64 MG/DL (7-18); BUN/CREATININE RATIO 12.8 (5.4-32.0); CHLORIDE 108 MMOL/L (99-107); CREATININE 4.99 MG/DL (0.60-1.10); PRE OP ALT 14 U/L (30-65); PRE OP ANION GAP 13 (8-16); PRE OP AST 26 U/L (10-37); PRE OP BILIRUB, TOTAL 0.3 MG/DL (0.0-1.0); PRE OP GLUCOSE 93 MG/DL (70-104); PRE OP POTASSIUM 5.6 MMOL/L (3.4-5.1); PRE OP SODIUM 138 MMOL/L (135-145); TOTAL CARBON DIOXIDE 17.3 MMOL/L (24-32); TOTAL PROTEIN 7.6 G/DL (6.4-8.2); eGFR 11 ML/MIN
[2021-07-04 17:25] LABS: HYALINE CASTS 0-3 /LPF (NEGATIVE); MUCUS STRANDS FEW /LPF (Neg); SQUAMOUS EPITHELIAL CELL,UR FEW /LPF (FEW)
[2021-07-04 17:26] LABS: BACTERIA,URINE FEW /HPF (Neg); RBC,URINE 0-2 /HPF (0-2); WBC,URINE 0-4 /HPF (0-4)
[2021-07-04 17:39] LABS: ANISOCYTOSIS 3+; BURR CELLS FEW; MICROCYTOSIS 1+; PLATELET ESTIMATE NORMAL; SCHISTOCYTES FEW
[2021-07-16] MEDS ORDERED: AMLO10TA13 PO (10:20)
== END 2021-07-04 23:59 | disposition home or self-care (01) ==
LOC: PRE-OP 15:10 → EDSTATUS 07-12 09:00
PROVIDERS: ATTEND Surgery
DX: Z01.812 Encounter for preprocedural laboratory examination (principal); J90 Pleural effusion, not elsewhere classified; Z20.822 Contact with and (suspected) exposure to COVID-19
CPT/HCPCS: 36415; 71046; 80053; 81001; 85008; 85025; 85610; 85730; 86885; 86900; 86901; 87081; U0003; U0005

== ENCOUNTER 2021-07-09 12:35 | Inpatient (IN) | payer MEDICARE, OTHER ==
[~2021-07-09] VITALS: Ht 172.7 cm; Wt 68.2 kg
[~2021-07-09 12:35] MED LIST changes: -ALBU18HF2 INH; -FLO0.4C PO
[2021-07-09 13:10] LABS: BASOPHILS # (AUTO) 0.1 X10'3 (0-0.2); BASOPHILS % (AUTO) 0.8 % (0-1); EOSINOPHILS # (AUTO) 0.1 X10'3 (0-0.9); EOSINOPHILS % (AUTO) 1.1 % (0-6); HEMOGLOBIN 8.5 g/dl (14.0-17.9); LYMPHOCYTES # (AUTO) 1.3 X10'3 (1.1-4.8); LYMPHOCYTES % (AUTO) 13.1 % (21-51); MEAN CORPUSCULAR HEMOGLOBIN 26.2 PG (27.0-31.0); MEAN CORPUSCULAR HGB CONC 32.6 g/dL (33.0-36.5); MEAN CORPUSCULAR VOLUME 80.3 FL (78-98); MEAN PLATELET VOLUME 7.2 FL (7.4-10.4); MONOCYTES # (AUTO) 0.8 X10'3 (0-0.9); MONOCYTES % (AUTO) 8.5 % (2-12); NEUTROPHILS # (AUTO) 7.6 X10'3 (1.8-7.7); NEUTROPHILS % (AUTO) 76.5 % (42-75); PLATELET COUNT 377 X10'3 (140-440); RED BLOOD COUNT 3.24 X10'6 (4.70-6.10); RED CELL DISTRIBUTION WIDTH 22.4 % (11.5-14.5); WHITE BLOOD COUNT 9.9 X10'3 (4.5-11.0)
[2021-07-09 13:18] LABS: ALANINE AMINOTRANSFERASE 10 U/L (12-78); ALBUMIN 3.2 G/DL (3.4-5.0); ALBUMIN/GLOBULIN RATIO 0.8 (1.1-1.5); ALKALINE PHOSPHATASE 58 IU/L (46-116); ANION GAP 15 (8-16); ASPARTATE AMINO TRANSFERASE 14 U/L (10-37); BILIRUBIN,TOTAL 0.3 MG/DL (0.1-1.0); BLOOD UREA NITROGEN 67 MG/DL (7-18); CALCIUM 8.4 MG/DL (8.5-10.1); CHLORIDE 110 MMOL/L (99-107); CREATININE 5.16 MG/DL (0.60-1.10); GLUCOSE 133 MG/DL (70-104); POTASSIUM 5.1 MMOL/L (3.5-5.1); SODIUM 142 MMOL/L (135-145); TOTAL CARBON DIOXIDE 17.2 MMOL/L (24-32); TOTAL PROTEIN 7.4 G/DL (6.4-8.2); eGFR 11 ML/MIN
[2021-07-09 13:39] LABS: PLATELET ESTIMATE NORMAL; SCHISTOCYTES 1+; TOTAL CELLS COUNTED 100
[2021-07-09 13:40] LABS: ANISOCYTOSIS 3+; HYPERSEGMENTED NEUTROPHILS 1+; POIKILOCYTOSIS FEW
[2021-07-09 13:41] LABS: ELLIPTOCYTES FEW; POLYCHROMASIA 1+
[2021-07-09 13:42] LABS: LARGE PLATELETS FEW; ROULEAUX 1+
[2021-07-09] MEDS ORDERED: nitroGLYCERIN 0.4mg SUBLingual tab SL PRN (13:55)
[2021-07-09] MEDS ORDERED: heparin 10,000 units/1 ML INJ IV ONE ×2 (14:00→14:10)
[2021-07-09] MEDS ORDERED: heparin 25,000 UNIT/250ml bag 250 ML IV SCH (14:00)
[2021-07-09] MEDS ORDERED: heparin 10,000 units/1 ML INJ IV PRN (14:00)
--- NOTE | 2021-07-09 14:42 | NUR ---
at bedside verbalized concern when told pt would be recieving herparin dr mckeon aware
[2021-07-09] MEDS ORDERED: IPRA3AMP31 NEB (15:02)
[2021-07-09] MEDS ORDERED: BUDE0.5A3 PO (15:02)
[2021-07-09] MEDS ORDERED: LOSA25TA41 PO (15:02)
[2021-07-09] MEDS ORDERED: KAY15L PO (15:13)
[2021-07-09] MEDS ORDERED: potassium Cl 40MEQ/1/2NS 520ml 520 ML IV PRN ×2 (15:40)
[2021-07-09] MEDS ORDERED: HYDROcodone/acetaminophen 10/325mg tab PO PRN (15:40)
[2021-07-09] MEDS ORDERED: HYDROcodone/acetaminophen 5mg/325mg tablet PO PRN (15:40)
[2021-07-09] MEDS ORDERED: PERFLUTREN PROTEIN-A MICROSPHR (Optison) 0.22 MG/ML 3ML VIAL IV PRN (15:40)
[2021-07-09] MEDS ORDERED: magnesium 4gm in 100ml NS 100 ML IV PRN (15:40)
[2021-07-09] MEDS ORDERED: ipratropium/albuterol 3ml nebule NEB PRN (15:40)
[2021-07-09] MEDS ORDERED: acetaminophen 325mg tablet PO PRN ×2 (15:40)
[2021-07-09] MEDS ORDERED: magnesium 2GM in 50ml NS 50 ML IV PRN (15:40)
[2021-07-09] MEDS ORDERED: albuterol 2.5 MG/3 ML nebule NEB PRN (15:40)
[2021-07-09] MEDS ORDERED: ondansetron/PF 4mg/2ml inj IV PRN (15:40)
[2021-07-09] MEDS ORDERED: potassium Cl 20 mEq SR tablet PO PRN ×2 (15:40)
[2021-07-09] MEDS: heparin, porcine 5000 units/ml vial SQ SCH (16:43)
[2021-07-09] MEDS ORDERED: K and/or MAG REPLACEMENT MC SCH (20:00)
[2021-07-09] MEDS: aspirin 81mg, enteric-coated 1 TAB TABLET.DR PO SCH (20:33)
[2021-07-09] MEDS: hydrALAZINE 25 MG tablet PO SCH (20:33)
[2021-07-09] MEDS: sodium bicarbonate 650mg tablet PO SCH (20:34)
[2021-07-09] MEDS: docusate sod 100mg capsule PO SCH (20:34)
[2021-07-09] MEDS: furosemide 20 MG/2 ML vial IV SCH (20:34)
[2021-07-09] MEDS: metoprolol tartrate 12.5mg (1/2 tablet) PO SCH (20:34)
[2021-07-09 21:45] VITALS: BP 169/81
--- NOTE | 2021-07-09 21:45 | NUR ---
PATIENT ADMITTED TO ROOM 3026A FROM ER FOR ACUTE CHF EXACERBATION. PLACED COMFORTABLE IN BED. VITAL SIGNS TAKEN AND RECORDED.
[2021-07-10] MEDS: heparin, porcine 5000 units/ml vial SQ SCH ×4 (00:36→23:51)
[2021-07-10 01:29] LABS: BASOPHILS # (AUTO) 0.1 X10'3 (0-0.2); EOSINOPHILS # (AUTO) 0.2 X10'3 (0-0.9); EOSINOPHILS % (AUTO) 2.2 % (0-6); HEMATOCRIT 22.5 % (42.0-52.0); HEMOGLOBIN 7.7 g/dl (14.0-17.9); LYMPHOCYTES # (AUTO) 1.1 X10'3 (1.1-4.8); LYMPHOCYTES % (AUTO) 12.3 % (21-51); MEAN CORPUSCULAR HEMOGLOBIN 26.9 PG (27.0-31.0); MEAN CORPUSCULAR VOLUME 79.2 FL (78-98); MEAN PLATELET VOLUME 7.2 FL (7.4-10.4); MONOCYTES # (AUTO) 0.9 X10'3 (0-0.9); MONOCYTES % (AUTO) 9.7 % (2-12); NEUTROPHILS % (AUTO) 74.8 % (42-75); PLATELET COUNT 320 X10'3 (140-440); RED BLOOD COUNT 2.85 X10'6 (4.70-6.10); RED CELL DISTRIBUTION WIDTH 22.5 % (11.5-14.5); WHITE BLOOD COUNT 9.4 X10'3 (4.5-11.0)
[2021-07-10 01:44] LABS: ALANINE AMINOTRANSFERASE 12 U/L (12-78); ALBUMIN 2.9 G/DL (3.4-5.0); ALBUMIN/GLOBULIN RATIO 0.8 (1.1-1.5); ALKALINE PHOSPHATASE 53 IU/L (46-116); ANION GAP 14 (8-16); ASPARTATE AMINO TRANSFERASE 12 U/L (10-37); BILIRUBIN,TOTAL 0.3 MG/DL (0.1-1.0); BLOOD UREA NITROGEN 66 MG/DL (7-18); BUN/CREATININE RATIO 12.6 (5.4-32.0); CALCIUM 7.8 MG/DL (8.5-10.1); CHLORIDE 108 MMOL/L (99-107); CREATININE 5.23 MG/DL (0.60-1.10); GLUCOSE 96 MG/DL (70-104); POTASSIUM 4.9 MMOL/L (3.5-5.1); SODIUM 139 MMOL/L (135-145); TOTAL CARBON DIOXIDE 16.9 MMOL/L (24-32); TOTAL PROTEIN 6.6 G/DL (6.4-8.2); eGFR 11 ML/MIN
[2021-07-10 01:45] LABS: PLATELET ESTIMATE NORMAL; POLYCHROMASIA 1+
[2021-07-10 01:46] LABS: ANISOCYTOSIS 3+; ELLIPTOCYTES FEW; SCHISTOCYTES FEW
[2021-07-10 01:47] LABS: CHOL/HDL RATIO 2.8 (0.00-4.99); CHOLESTEROL 109 MG/DL (0-200); HDL CHOLESTEROL 39 MG/DL (35-60); LDL CHOLESTEROL 51 MG/DL (50-100); MAGNESIUM 1.9 MG/DL (1.5-2.4); MICROCYTOSIS 1+; TRIGLYCERIDES 64 MG/DL (20-135)
[2021-07-10 01:48] LABS: LARGE PLATELETS FEW
[2021-07-10 02:00] VITALS: BP 163/78
--- NOTE | 2021-07-10 06:19 | NUR ---
Problems reprioritized. Patient report given, questions answered & plan of care reviewed with SOWMYA RICHARD.
[2021-07-10 07:00] VITALS: BP 144/76
[2021-07-10] MEDS: metoprolol tartrate 12.5mg (1/2 tablet) PO SCH ×2 (07:34→19:41)
[2021-07-10] MEDS: docusate sod 100mg capsule PO SCH ×2 (07:35→19:40)
[2021-07-10] MEDS: hydrALAZINE 25 MG tablet PO SCH ×2 (07:35→19:40)
[2021-07-10] MEDS: sodium bicarbonate 650mg tablet PO SCH ×3 (07:35→19:50)
[2021-07-10] MEDS: atorvastatin 10mg tablet PO SCH (07:35)
[2021-07-10] MEDS: furosemide 20 MG/2 ML vial IV SCH ×2 (07:36→19:41)
[2021-07-10 11:00] VITALS: BP 163/67
[2021-07-10 15:00] VITALS: BP 168/71
[2021-07-10 18:00] VITALS: BP 186/64
[2021-07-10] MEDS: aspirin 81mg, enteric-coated 1 TAB TABLET.DR PO SCH (19:50)
[2021-07-10 22:00] VITALS: BP 176/65
[2021-07-10] MEDS: hydrALAZINE 20mg/ml inj. IV PRN (23:52)
[2021-07-11] VITALS (7 sets, daily range): BP systolic 90–182; BP diastolic 44–69
[2021-07-11 07:01] LABS: BASOPHILS # (AUTO) 0.1 X10'3 (0-0.2); BASOPHILS % (AUTO) 1.2 % (0-1); EOSINOPHILS # (AUTO) 0.3 X10'3 (0-0.9); EOSINOPHILS % (AUTO) 3.3 % (0-6); HEMOGLOBIN 7.7 g/dl (14.0-17.9); LYMPHOCYTES # (AUTO) 1.4 X10'3 (1.1-4.8); LYMPHOCYTES % (AUTO) 15.2 % (21-51); MEAN CORPUSCULAR HEMOGLOBIN 27.3 PG (27.0-31.0); MEAN CORPUSCULAR HGB CONC 33.7 g/dL (33.0-36.5); MEAN CORPUSCULAR VOLUME 81.1 FL (78-98); MEAN PLATELET VOLUME 7.6 FL (7.4-10.4); MONOCYTES % (AUTO) 11.5 % (2-12); NEUTROPHILS # (AUTO) 6.3 X10'3 (1.8-7.7); NEUTROPHILS % (AUTO) 68.8 % (42-75); PLATELET COUNT 288 X10'3 (140-440); RED BLOOD COUNT 2.84 X10'6 (4.70-6.10); RED CELL DISTRIBUTION WIDTH 22.7 % (11.5-14.5); WHITE BLOOD COUNT 9.1 X10'3 (4.5-11.0)
[2021-07-11 07:04] LABS: ALANINE AMINOTRANSFERASE 9 U/L (12-78); ALBUMIN 2.7 G/DL (3.4-5.0); ALBUMIN/GLOBULIN RATIO 0.7 (1.1-1.5); ALKALINE PHOSPHATASE 49 IU/L (46-116); ANION GAP 15 (8-16); ASPARTATE AMINO TRANSFERASE 15 U/L (10-37); BILIRUBIN,TOTAL 0.2 MG/DL (0.1-1.0); BLOOD UREA NITROGEN 67 MG/DL (7-18); CHLORIDE 110 MMOL/L (99-107); CREATININE 5.14 MG/DL (0.60-1.10); GLUCOSE 89 MG/DL (70-104); MAGNESIUM 1.9 MG/DL (1.5-2.4); POTASSIUM 4.9 MMOL/L (3.5-5.1); SODIUM 141 MMOL/L (135-145); TOTAL CARBON DIOXIDE 15.9 MMOL/L (24-32); TOTAL PROTEIN 6.4 G/DL (6.4-8.2); eGFR 11 ML/MIN
[2021-07-11] MEDS: furosemide 20 MG/2 ML vial IV SCH ×2 (09:49→19:57)
[2021-07-11] MEDS: sodium bicarbonate 650mg tablet PO SCH ×3 (09:49→21:51)
[2021-07-11] MEDS: atorvastatin 10mg tablet PO SCH (09:49)
[2021-07-11] MEDS: docusate sod 100mg capsule PO SCH ×2 (09:50→19:56)
[2021-07-11] MEDS: hydrALAZINE 25 MG tablet PO SCH ×2 (09:50→19:56)
[2021-07-11] MEDS: heparin, porcine 5000 units/ml vial SQ SCH ×3 (09:51→16:32)
[2021-07-11] MEDS: lisinopril 2.5mg tablet PO SCH (09:51)
[2021-07-11] MEDS: metoprolol tartrate 12.5mg (1/2 tablet) PO SCH ×2 (11:53→19:57)
[2021-07-11] MEDS: hydrALAZINE 20mg/ml inj. IV PRN (13:20)
--- NOTE | 2021-07-11 13:50 | NUR ---
PAGER ID: [phone] MESSAGE: RADHA HILL [id number] DESIREE WOULD LIKE YOU TO CALL AND UPDATE HER [phone] HAS QUESTIONS REGARDING CXR RESULTS WELL. CARROL [id number]
--- NOTE | 2021-07-11 14:29 | NUR ---
CEPHALOMETRIC TECHNICIAN ROUNDED ON PT.
--- NOTE | 2021-07-11 14:33 | NUR ---
PAGER ID: [phone] MESSAGE: RADHA MCLAUGHLIN [id number] PLEASE NOTE PT'S HTN. CURRENTLY 164/60 WITH 61 HR AFTER PRN 10MG IV HYDRALAZINE GIVEN. CARROL [id number]
--- NOTE | 2021-07-11 14:42 | NUR ---
HOSPITALIST RETURNED CALL REGARDING BP. THIS IS BEST BP NOTING PT BASELINE. NO NEW ORDERS AT THIS TIME
--- NOTE | 2021-07-11 16:30 | NUR ---
CALLED DEVIKA TO ASK IF HE WANTS HEPARIN HELD TONIGHT R/T TOMORROW PROPOSED SURGERY. SURGEON STATES TO HOLD HEPARIN.
--- NOTE | 2021-07-11 17:00 | NUR ---
Pt. requesting to be in empty B bed in room. Spoke to charge hand about his request.
--- NOTE | 2021-07-11 18:25 | NUR ---
Patient in room PCU 3026. I have received report from HILARY Fuchs and had the opportunity to ask questions and assume patient care.
--- NOTE | 2021-07-11 18:36 | NUR ---
Gave report to Colby RICHARD
--- NOTE | 2021-07-11 18:55 | NUR ---
Patient in room PCU 3026. I have received report from HILARY Fuchs and had the opportunity to ask questions and assume patient care.
[2021-07-11] MEDS: aspirin 81mg, enteric-coated 1 TAB TABLET.DR PO SCH (21:51)
[2021-07-12 02:00] VITALS: BP 161/50
[2021-07-12 06:00] VITALS: BP 171/55
--- NOTE | 2021-07-12 06:40 | NUR ---
Problems reprioritized. Patient report given, questions answered & plan of care reviewed with HILARY Banuelos.
[2021-07-12] MEDS: furosemide 20 MG/2 ML vial IV SCH (08:00)
[2021-07-12] MEDS ORDERED: sodium polystyrene sulfonate 15gm/60ml oral suspension PO SCH (08:00)
[2021-07-12] MEDS: sodium bicarbonate 650mg tablet PO SCH ×2 (08:00→13:44)
[2021-07-12] MEDS: docusate sod 100mg capsule PO SCH (08:00)
[2021-07-12] MEDS: atorvastatin 10mg tablet PO SCH (08:00)
[2021-07-12] MEDS: lisinopril 2.5mg tablet PO SCH (08:08)
[2021-07-12] MEDS: metoprolol tartrate 12.5mg (1/2 tablet) PO SCH (08:08)
[2021-07-12] MEDS: hydrALAZINE 25 MG tablet PO SCH (08:08)
[2021-07-12 08:22] LABS: BASOPHILS # (AUTO) 0.1 X10'3 (0-0.2); BASOPHILS % (AUTO) 0.8 % (0-1); EOSINOPHILS # (AUTO) 0.3 X10'3 (0-0.9); EOSINOPHILS % (AUTO) 3.7 % (0-6); HEMOGLOBIN 7.1 g/dl (14.0-17.9); LYMPHOCYTES # (AUTO) 1.1 X10'3 (1.1-4.8); MEAN CORPUSCULAR HEMOGLOBIN 26.9 PG (27.0-31.0); MEAN CORPUSCULAR VOLUME 81.4 FL (78-98); MEAN PLATELET VOLUME 7.4 FL (7.4-10.4); MONOCYTES % (AUTO) 11.6 % (2-12); NEUTROPHILS # (AUTO) 6.5 X10'3 (1.8-7.7); NEUTROPHILS % (AUTO) 71.9 % (42-75); PLATELET COUNT 315 X10'3 (140-440); RED BLOOD COUNT 2.66 X10'6 (4.70-6.10); RED CELL DISTRIBUTION WIDTH 23.1 % (11.5-14.5)
[2021-07-12 08:26] LABS: HEMATOCRIT 21.6 % (42.0-52.0)
[2021-07-12 08:29] LABS: PRE OP PARTIAL THROMB. TIME 29 SECONDS (22-32)
[2021-07-12] MEDS ORDERED: heparin 10,000 units/1 ML INJ ONE (08:33)
[2021-07-12] MEDS ORDERED: LIDOcaine 1% 30ml preserv. free vial ONE (08:33)
[2021-07-12] MEDS ORDERED: protamine sulfate 10mg/ml inj. ONE (08:33)
[2021-07-12] MEDS ORDERED: LIDOcaine 1% (10mg/ml) 2ml vial ONE (08:36)
--- NOTE | 2021-07-12 08:38 | NUR ---
PAGER ID: [phone] MESSAGE: [id number] Hill: HBG 7.1 HCT 21.6
[2021-07-12 08:43] LABS: ALANINE AMINOTRANSFERASE 12 U/L (12-78); ALBUMIN 2.6 G/DL (3.4-5.0); ALBUMIN/GLOBULIN RATIO 0.7 (1.1-1.5); ALKALINE PHOSPHATASE 48 IU/L (46-116); ANION GAP 13 (8-16); ASPARTATE AMINO TRANSFERASE 13 U/L (10-37); BILIRUBIN,TOTAL 0.2 MG/DL (0.1-1.0); BLOOD UREA NITROGEN 69 MG/DL (7-18); BUN/CREATININE RATIO 12.6 (5.4-32.0); CALCIUM 7.6 MG/DL (8.5-10.1); CHLORIDE 110 MMOL/L (99-107); CREATININE 5.46 MG/DL (0.60-1.10); GLUCOSE 93 MG/DL (70-104); MAGNESIUM 1.9 MG/DL (1.5-2.4); POTASSIUM 5.1 MMOL/L (3.5-5.1); SODIUM 140 MMOL/L (135-145); TOTAL CARBON DIOXIDE 17.2 MMOL/L (24-32); TOTAL PROTEIN 6.1 G/DL (6.4-8.2); eGFR 10 ML/MIN
[2021-07-12 10:29] LABS: ANISOCYTOSIS 3+; PLATELET ESTIMATE NORMAL; POLYCHROMASIA 1+; TEAR DROP CELLS FEW
[2021-07-12 10:30] LABS: SCHISTOCYTES 1+
[2021-07-12 11:00] VITALS: BP 150/64
[2021-07-12 11:51] VITALS: BP 160/56
[2021-07-12] MEDS ORDERED: FURO40TA4 PO ×2 (13:12)
[2021-07-12] MEDS ORDERED: EPOETIN ALFA-EPBX 20,000 UNIT/ML 1 ML MDV SQ SCH (16:55)
[2021-07-16] MEDS ORDERED: AMLO10TA13 PO (10:20)
== END 2021-07-12 16:15 | disposition home or self-care (01) | DRG 280 ==
LOC: ER 12:36 → ED HOLD 15:44 → PCU 3S 21:35
PROVIDERS: ADMIT Family Medicine; ATTEND Family Medicine
PROC: 30233N1 Transfusion of Nonautologous Red Blood Cells into Peripheral Vein, Percutaneous Approach (ICD-10-PCS; principal; 2021-07-12)
DX: I13.2 Hypertensive heart and chronic kidney disease with heart failure and with stage 5 chronic kidney disease, or end stage renal disease (principal); I21.A1 Myocardial infarction type 2; N18.6 End stage renal disease; I50.21 Acute systolic (congestive) heart failure; E87.2 Acidosis; E78.5 Hyperlipidemia, unspecified; F12.90 Cannabis use, unspecified, uncomplicated; D63.1 Anemia in chronic kidney disease; I65.29 Occlusion and stenosis of unspecified carotid artery; I25.10 Atherosclerotic heart disease of native coronary artery without angina pectoris; N40.0 Benign prostatic hyperplasia without lower urinary tract symptoms; I95.9 Hypotension, unspecified; M54.9 Dorsalgia, unspecified; Z95.1 Presence of aortocoronary bypass graft; Z88.7 Allergy status to serum and vaccine; Z79.899 Other long term (current) drug therapy; Z79.82 Long term (current) use of aspirin
CPT/HCPCS: 36415; 36430; 71045; 80053; 80061; 83735; 83880; 84484; 85007; 85008; 85025; 85610; 85730; 86885; 86900; 86901; 86920; 87081; 93005; 93306; 94640; 94760; 97110; 97161; 97530; 99285; G0378; J0360; J1644; J1940; J2001; J2720; P9016

== ENCOUNTER 2021-07-18 06:32 | Inpatient (IN) | payer MEDICARE, OTHER ==
[~2021-07-18] VITALS: Ht 175.3 cm; Wt 67.4 kg
[2021-07-18] VITALS (27 sets, daily range): BP systolic 117–187; BP diastolic 33–96
[~2021-07-18 06:32] MED LIST changes: +DOCUMENT DATE & TIME OF BETA-BLOCKER PO ONE; +IPRA3AMP31 NEB; +KAY15L PO; +cefazolin/dext.iso 2gm/50ml IV ONE; +famotidine 20mg tablet PO ONE; +nitroPRUSSIDE 0.2mg/mL in NS 100 ML IV PRN; +normal saline 1000ml 1,000 ML IV SCH; +phenylephrine inj 50 MG in normal saline 250ml IV soln 245 ML IV PRN
[2021-07-18] MEDS ORDERED: albuterol 2.5 MG/3 ML nebule NEB ONE (08:25)
[2021-07-18 08:37] LABS: PRE OP INR 1.1 INR; PRE OP PROTIME 11.1 SECONDS (9.0-12.0)
[2021-07-18 08:40] LABS: ALBUMIN 3.1 G/DL (3.4-5.0); ALBUMIN/GLOBULIN RATIO 0.8 (1.1-1.5); ALKALINE PHOSPHATASE 61 IU/L (46-116); BLOOD UREA NITROGEN 81 MG/DL (7-18); BUN/CREATININE RATIO 16.6 (5.4-32.0); CALCIUM 7.6 MG/DL (8.5-10.1); CHLORIDE 107 MMOL/L (99-107); CREATININE 4.89 MG/DL (0.60-1.10); PRE OP ALT 11 U/L (30-65); PRE OP ANION GAP 15 (8-16); PRE OP AST 12 U/L (10-37); PRE OP BILIRUB, TOTAL 0.3 MG/DL (0.0-1.0); PRE OP GLUCOSE 91 MG/DL (70-104); PRE OP POTASSIUM 4.8 MMOL/L (3.4-5.1); PRE OP SODIUM 139 MMOL/L (135-145); TOTAL CARBON DIOXIDE 16.8 MMOL/L (24-32); TOTAL PROTEIN 7.1 G/DL (6.4-8.2); eGFR 11 ML/MIN
[2021-07-18 08:45] LABS: BASOPHILS # (AUTO) 0.1 X10'3 (0-0.2); BASOPHILS % (AUTO) 0.7 % (0-1); EOSINOPHILS # (AUTO) 0.3 X10'3 (0-0.9); LYMPHOCYTES # (AUTO) 0.9 X10'3 (1.1-4.8); LYMPHOCYTES % (AUTO) 8.7 % (21-51); MEAN CORPUSCULAR HEMOGLOBIN 28.7 PG (27.0-31.0); MEAN CORPUSCULAR HGB CONC 33.5 g/dL (33.0-36.5); MEAN CORPUSCULAR VOLUME 85.7 FL (78-98); MEAN PLATELET VOLUME 7.4 FL (7.4-10.4); MONOCYTES # (AUTO) 1.1 X10'3 (0-0.9); MONOCYTES % (AUTO) 11.8 % (2-12); NEUTROPHILS # (AUTO) 7.4 X10'3 (1.8-7.7); NEUTROPHILS % (AUTO) 75.8 % (42-75); PRE OP HEMATOCRIT 28.2 % (42.0-52.0); PRE OP PLATELET COUNT 350 X10'3 (140-440); RED BLOOD COUNT 3.29 X10'6 (4.70-6.10); RED CELL DISTRIBUTION WIDTH 24.3 % (11.5-14.5)
[2021-07-18] MEDS ORDERED: heparin 10,000 units/1 ML INJ ONE (08:54)
[2021-07-18] MEDS ORDERED: LIDOcaine 1% 30ml preserv. free vial ONE (08:54)
[2021-07-18] MEDS ORDERED: protamine sulfate 10mg/ml inj. ONE (08:55)
[2021-07-18 08:59] LABS: PRE OP HEMOGLOBIN 9.4 g/dL (14.0-17.9)
[2021-07-18] MEDS ORDERED: fentaNYL/PF 50MCG/1 ML 2ML syringe ONE (09:06)
[2021-07-18] MEDS ORDERED: albumin (Human) 5% 250ml 250 ML IV ONE ×2 (09:08→11:16)
[2021-07-18] MEDS ORDERED: neostigmine methylsulfate 1 MG/ML 10ml vial ONE (09:08)
[2021-07-18] MEDS ORDERED: glycopyrrolate 0.2mg/ml inj ONE (09:08)
[2021-07-18] MEDS ORDERED: dexamethasone sod phosphate 4mg/ml inj. ONE (09:09)
[2021-07-18] MEDS ORDERED: rocuronium 10mg/ml inj IV ONE (09:09)
[2021-07-18] MEDS ORDERED: etomidate 2mg/ml inj. ONE (09:09)
[2021-07-18] MEDS ORDERED: ondansetron/PF 4mg/2ml inj ONE (09:09)
[2021-07-18] MEDS ORDERED: desflurane 240ml liquid inh. IH ONE (10:01)
[2021-07-18] MEDS ORDERED: ePHEDrine 50MG/ML INJ. ONE (10:52)
[2021-07-18] MEDS ORDERED: heparin 1,000unit/ml 10ml vial 10 ML ONE (10:52)
[2021-07-18] MEDS ORDERED: fentaNYL/PF 50MCG/1 ML 2ML syringe IV PRN ×2 (11:10)
[2021-07-18] MEDS ORDERED: enalaprilat dihydrate 2.5mg/2ml vial IV PRN (11:10)
[2021-07-18] MEDS ORDERED: nitroPRUSSIDE sod inj. 50 MG in dextrose 5%-water 248 ML IV SCH (11:10)
[2021-07-18] MEDS ORDERED: labetalol 20mg/4ml (5mg/ml) syringe IV PRN (11:10)
[2021-07-18] MEDS ORDERED: ondansetron/PF 4mg/2ml inj IV PRN (11:10)
[2021-07-18] MEDS ORDERED: morphine 4 MG/ML inj SYRINge IV PRN (11:10)
[2021-07-18] MEDS ORDERED: morphine 2 MG/ML inj. syringe IV PRN (11:10)
[2021-07-18] MEDS ORDERED: ringers solution, lacted 1,000 ML IV SCH (11:10)
[2021-07-18] MEDS ORDERED: PHENYLephrine 10mg/ml inj. 100 MG in normal saline 250ml IV soln 240 ML IV SCH (11:10)
[2021-07-18] MEDS ORDERED: metoprolol tartrate 1mg/ml inj IV ONE (11:14)
[2021-07-18 12:08] LABS: ANISOCYTOSIS 3+; PLATELET ESTIMATE NORMAL
[2021-07-18 12:09] LABS: SCHISTOCYTES 1+; TEAR DROP CELLS 1+
--- NOTE | 2021-07-18 13:03 | NUR ---
Received from OR via BED, accompanied by Anesthesiologist DR BOWERS and report given by Anesthesiologist AND CAMPUS ADMINISTRATIVE ASSISTANT. PT DROWSY, DENIES PAIN, LEFT NECK W/INCISION W/CLEAR SURGICAL TAPE COVERING W/SCANT AMT OF BLOODY DRAINAGE, MOE TO BULB SX W/SMALL AMT OF SANGUINOUS DRAINAGE. GEIGER CATHETER TO GRAVITY DRAINAGE W/YELLOW URINE IN DRAINAGE BAG. NEURO CHECKS INTACT, TONGUE MIDLINE, SMILE, EYE SQUINT, AND EYES WIDE OPEN SYMMETRICAL, EQUAL VOCATIONAL REHABILITATION TECHNICIAN/ PUSH/PULL ALL EXTREMITIES. Addendum: 07/18/21 at 1343 by Dede Oshea RN Amended: Links added.
[2021-07-18] MEDS ORDERED: ipratropium/albuterol 3ml nebule NEB PRN (13:35)
[2021-07-18 14:16] LABS: PARTIAL THROMBOPLASTIN TIME 103 SECONDS (22-32)
--- NOTE | 2021-07-18 15:03 | NUR ---
Report called to receiving nurse. Transferred ON CM via BED W/1 BAG OF Belongings, RECEIVING RN AT BEDSIDE TO RECEIVE PT. PT W/O ANY NEURO CHANGES, NECK REMAINS SOFT, NO S/S OF HEMATOMA, SWELLING, OOZING. Special Issues communicated to receiving nurse. YES. Addendum: 07/18/21 at 1538 by Dede Oshea RN Amended: Links added.
--- NOTE | 2021-07-18 15:15 | NUR ---
Pt received from Recover room post left carotid endarterectomy MOE left neck with min drainage drsg dry and intact VSS Orders to use cuff pressures Awake and alert Lung clear A line to monitor Chatman with qs amts of urine Rhythm A fib hr50 No c/o of pain offered Neuro check done and noted
[2021-07-18] MEDS: Potassium Cl inj 20 MEQ in ringers solution, lacted 1,000 ML IV SCH ×2 (17:10→21:59)
[2021-07-18] MEDS: ceFAZolin inj. 1,000 MG in dextrose 5%-water 50ml 50 ML IV SCH ×2 (17:10→23:10)
--- NOTE | 2021-07-18 18:38 | NUR ---
Problems reprioritized. Patient report given, questions answered & plan of care reviewed with Charles RICHARD Neuro ungh eating full liq without difficulty VSS Offersno c/o of pain or discomfort MOE with min drainage .
[2021-07-18] MEDS ORDERED: metoprolol tartrate 25mg tablet PO SCH (20:00)
[2021-07-18] MEDS: sodium bicarbonate 650mg tablet PO SCH (20:24)
[2021-07-18] MEDS: aspirin 81mg, enteric-coated 1 TAB TABLET.DR PO SCH (20:24)
[2021-07-18] MEDS: hydrALAZINE 25 MG tablet PO SCH (20:25)
[2021-07-19] VITALS (25 sets, daily range): BP systolic 134–215; BP diastolic 44–89
[2021-07-19 03:07] LABS: BASOPHILS % (AUTO) 0.2 % (0-1); EOSINOPHILS % (AUTO) 0 % (0-6); HEMOGLOBIN 7.2 g/dl (14.0-17.9); LYMPHOCYTES # (AUTO) 0.5 X10'3 (1.1-4.8); LYMPHOCYTES % (AUTO) 5.8 % (21-51); MEAN CORPUSCULAR HEMOGLOBIN 28.5 PG (27.0-31.0); MEAN CORPUSCULAR HGB CONC 33.8 g/dL (33.0-36.5); MEAN CORPUSCULAR VOLUME 84.5 FL (78-98); MEAN PLATELET VOLUME 7.4 FL (7.4-10.4); MONOCYTES # (AUTO) 0.9 X10'3 (0-0.9); MONOCYTES % (AUTO) 9.9 % (2-12); NEUTROPHILS # (AUTO) 7.3 X10'3 (1.8-7.7); NEUTROPHILS % (AUTO) 84.1 % (42-75); PLATELET COUNT 266 X10'3 (140-440); RED BLOOD COUNT 2.51 X10'6 (4.70-6.10); WHITE BLOOD COUNT 8.7 X10'3 (4.5-11.0)
[2021-07-19 03:15] LABS: ALBUMIN 2.6 G/DL (3.4-5.0); ANION GAP 13 (8-16); BLOOD UREA NITROGEN 73 MG/DL (7-18); BUN/CREATININE RATIO 15.8 (5.4-32.0); CALCIUM 7.1 MG/DL (8.5-10.1); CHLORIDE 109 MMOL/L (99-107); CREATININE 4.63 MG/DL (0.60-1.10); GLUCOSE 110 MG/DL (70-104); POTASSIUM 5.3 MMOL/L (3.5-5.1); SODIUM 139 MMOL/L (135-145); TOTAL CARBON DIOXIDE 17.4 MMOL/L (24-32); eGFR 12 ML/MIN
[2021-07-19 03:16] LABS: HEMATOCRIT 21.2 % (42.0-52.0)
[2021-07-19 03:44] LABS: ANISOCYTOSIS 3+; PLATELET ESTIMATE NORMAL
[2021-07-19 03:46] LABS: POLYCHROMASIA FEW; SCHISTOCYTES 1+; TEAR DROP CELLS FEW
[2021-07-19] MEDS: Potassium Cl inj 20 MEQ in ringers solution, lacted 1,000 ML IV SCH ×2 (06:10→13:40)
--- NOTE | 2021-07-19 06:46 | NUR ---
Patient in room ICU 2039. I have received report from Charles RICHARD and had the opportunity to ask questions and assume patient care.
[2021-07-19] MEDS ORDERED: sodium polystyrene sulfonate 15gm/60ml oral suspension PO SCH (08:00)
[2021-07-19] MEDS: ceFAZolin inj. 1,000 MG in dextrose 5%-water 50ml 50 ML IV SCH (08:01)
[2021-07-19] MEDS: atorvastatin 10mg tablet PO SCH (08:05)
[2021-07-19] MEDS: sodium bicarbonate 650mg tablet PO SCH ×3 (08:06→20:10)
[2021-07-19] MEDS: hydrALAZINE 25 MG tablet PO SCH ×2 (08:06→20:10)
[2021-07-19] MEDS: amLODIPine 5mg tablet PO SCH (08:07)
[2021-07-19] MEDS: metoprolol tartrate 12.5mg (1/2 tablet) PO SCH ×3 (08:09→20:11)
[2021-07-19] MEDS: HYDROcodone/acetaminophen 10/325mg tab PO PRN ×3 (08:28→23:47)
[2021-07-19] MEDS ORDERED: BUDE0.5A3 PO (12:42)
[2021-07-19] MEDS ORDERED: FURO40TA4 PO (12:42)
[2021-07-19] MEDS ORDERED: LOSA25TA41 PO (12:42)
[2021-07-19] MEDS: hydrALAZINE 20mg/ml inj. IV PRN ×3 (13:10→22:30)
--- NOTE | 2021-07-19 15:11 | NUR ---
Hydralazine and metropolol have been administered per Brusett for elevated BP. Awaiting further orders.
--- NOTE | 2021-07-19 16:56 | NUR ---
Called Dr. Church regarding patient being hypertensive despite receiving 10mg hydralazine Q4hr PRNx2. He stated that he will come by to see the patient.
--- NOTE | 2021-07-19 18:30 | NUR ---
Problems reprioritized. Patient report given, questions answered & plan of care reviewed with Sarthak RICHARD.
--- NOTE | 2021-07-19 18:30 | NUR ---
Patient in room ICU 2039. I have received report from Daxa RICHARD and had the opportunity to ask questions and assume patient care.
[2021-07-19] MEDS: aspirin 81mg, enteric-coated 1 TAB TABLET.DR PO SCH (20:10)
[2021-07-19] MEDS ORDERED: furosemide 20 MG/2 ML vial IV ONE (20:25)
[2021-07-19] MEDS: nitroGLYCERIN 0.4mg/hour patch TD SCH (20:52)
[2021-07-20] VITALS (14 sets, daily range): BP systolic 142–183; BP diastolic 54–83
[2021-07-20] MEDS: hydrALAZINE 20mg/ml inj. IV PRN (03:09)
--- NOTE | 2021-07-20 06:34 | NUR ---
Problems reprioritized. Patient report given, questions answered & plan of care reviewed with Estella RICHARD.
[2021-07-20 06:57] LABS: BASOPHILS # (AUTO) 0.1 X10'3 (0-0.2); BASOPHILS % (AUTO) 1.1 % (0-1); EOSINOPHILS # (AUTO) 0.2 X10'3 (0-0.9); EOSINOPHILS % (AUTO) 2.1 % (0-6); HEMATOCRIT 25.5 % (42.0-52.0); HEMOGLOBIN 8.7 g/dl (14.0-17.9); LYMPHOCYTES % (AUTO) 10.5 % (21-51); MEAN CORPUSCULAR HEMOGLOBIN 28.8 PG (27.0-31.0); MEAN CORPUSCULAR HGB CONC 34.1 g/dL (33.0-36.5); MEAN CORPUSCULAR VOLUME 84.5 FL (78-98); MEAN PLATELET VOLUME 7.2 FL (7.4-10.4); MONOCYTES # (AUTO) 1.1 X10'3 (0-0.9); NEUTROPHILS # (AUTO) 7.5 X10'3 (1.8-7.7); NEUTROPHILS % (AUTO) 75.3 % (42-75); PLATELET COUNT 369 X10'3 (140-440); RED BLOOD COUNT 3.02 X10'6 (4.70-6.10); RED CELL DISTRIBUTION WIDTH 23.3 % (11.5-14.5); WHITE BLOOD COUNT 9.9 X10'3 (4.5-11.0)
--- NOTE | 2021-07-20 06:58 | NUR ---
Patient in room ICU 2039. I have received report from HILARY CHEEMA, and had the opportunity to ask questions and assume patient care.
[2021-07-20 07:10] LABS: ALBUMIN 3.1 G/DL (3.4-5.0); ANION GAP 15 (8-16); BLOOD UREA NITROGEN 68 MG/DL (7-18); BUN/CREATININE RATIO 14.3 (5.4-32.0); CALCIUM 7.9 MG/DL (8.5-10.1); CHLORIDE 107 MMOL/L (99-107); CREATININE 4.76 MG/DL (0.60-1.10); GLUCOSE 93 MG/DL (70-104); POTASSIUM 4.8 MMOL/L (3.5-5.1); SODIUM 140 MMOL/L (135-145); TOTAL CARBON DIOXIDE 17.7 MMOL/L (24-32); eGFR 12 ML/MIN
[2021-07-20] MEDS: metoprolol tartrate 12.5mg (1/2 tablet) PO SCH (07:18)
[2021-07-20] MEDS: atorvastatin 10mg tablet PO SCH (07:18)
[2021-07-20] MEDS: hydrALAZINE 25 MG tablet PO SCH (07:18)
[2021-07-20] MEDS: amLODIPine 5mg tablet PO SCH (07:18)
[2021-07-20] MEDS: nitroGLYCERIN 0.4mg/hour patch TD SCH (07:19)
[2021-07-20] MEDS: sodium bicarbonate 650mg tablet PO SCH ×2 (07:19→12:58)
[2021-07-20] MEDS ORDERED: furosemide 20MG tablet PO ONE (09:30)
[2021-07-20] MEDS ORDERED: NORepinephrine 8mg/ 250ml NS 250 ML IV ONE (10:36)
--- NOTE | 2021-07-20 13:20 | NUR ---
PT STABLE FOR DISCHARGE PER MD. DISCHARGE AND FOLLOW UP INSTRUCTIONS REVIEWED WITH PT. APPROPRIATE PAPERWORK SIGNED. PIV REMOVED WITH TIP INTACT, PROCEDURE TOLERATED WELL BY PT. PT TRANSPORTED BY HOSPITAL STAFF TO PRIVATE VEHICLE. PT DISCHARGED TO HOME. PT DRIVEN HOME BY .
== END 2021-07-20 13:10 | disposition home or self-care (01) | DRG 39 ==
LOC: PAS IN 06:32 → ICU 2S 15:15
PROVIDERS: ADMIT Surgery; ATTEND Surgery
PROC: 03CL0ZZ Extirpation of Matter from Left Internal Carotid Artery, Open Approach (ICD-10-PCS; 2021-07-18)
PROC: 03CN0ZZ Extirpation of Matter from Left External Carotid Artery, Open Approach (ICD-10-PCS; 2021-07-18)
PROC: 03UJ0KZ Supplement Left Common Carotid Artery with Nonautologous Tissue Substitute, Open Approach (ICD-10-PCS; 2021-07-18)
PROC: 03UL0KZ Supplement Left Internal Carotid Artery with Nonautologous Tissue Substitute, Open Approach (ICD-10-PCS; 2021-07-18)
PROC: 03UN0KZ Supplement Left External Carotid Artery with Nonautologous Tissue Substitute, Open Approach (ICD-10-PCS; 2021-07-18)
PROC: 4A10X4Z Monitoring of Central Nervous Electrical Activity, External Approach (ICD-10-PCS; 2021-07-18)
PROC: 03CJ0ZZ Extirpation of Matter from Left Common Carotid Artery, Open Approach (ICD-10-PCS; principal; 2021-07-18 10:01)
DX: I65.22 Occlusion and stenosis of left carotid artery (principal); R13.10 Dysphagia, unspecified; Z20.822 Contact with and (suspected) exposure to COVID-19; Z79.899 Other long term (current) drug therapy; Z79.82 Long term (current) use of aspirin
CPT/HCPCS: 36415; 80048; 80053; 85008; 85025; 85610; 85730; 86885; 86900; 86901; 87081; 87635; 88300; 88305; 94640; 94760; 95813; 95816; 97161; 97530; A4618; A6258; A7000; C1758; C1768; C1887; G0378; J0360; J0690; J1100; J1644; J1940; J2001; J2370; J2405; J2710; J2720; J3010; J3480; J3490; J7030; J7040; J7050; J7060; J7120; P9045

== ENCOUNTER 2023-08-17 14:41 | Inpatient (IN) | payer MEDICARE, OTHER ==
[~2023-08-17] VITALS: Ht 175.3 cm; Wt 78.3 kg
[2023-08-17] VITALS (9 sets, daily range): BP systolic 131–184; BP diastolic 50–85; PULSE 68–78; RESP 12–72; TEMP 98–98.1; O2SAT 92–94
[~2023-08-17 14:41] MED LIST changes: +BUDE0.5A3 PO; -DOCUMENT DATE & TIME OF BETA-BLOCKER PO ONE; +FURO40TA4 PO; -cefazolin/dext.iso 2gm/50ml IV ONE; -famotidine 20mg tablet PO ONE; -nitroPRUSSIDE 0.2mg/mL in NS 100 ML IV PRN; -normal saline 1000ml 1,000 ML IV SCH; -phenylephrine inj 50 MG in normal saline 250ml IV soln 245 ML IV PRN
[2023-08-17] MEDS ORDERED: NIFE90TA61 PO (15:26)
[2023-08-17] MEDS ORDERED: APIX2.5T PO (15:26)
[2023-08-17] MEDS ORDERED: FOLI0.8T22 PO (15:26)
[2023-08-17] MEDS ORDERED: FURO80TA3 PO (15:26)
[2023-08-17] MEDS ORDERED: CLOP75TA34 PO (15:28)
[2023-08-17] MEDS ORDERED: PHO667C (15:28)
[2023-08-17 15:35] LABS: BASOPHILS % (AUTO) 0.7 % (0-1); EOSINOPHILS # (AUTO) 0.2 X10'3 (0-0.9); EOSINOPHILS % (AUTO) 2.5 % (0-6); HEMATOCRIT 34.3 % (42.0-52.0); HEMOGLOBIN 11.3 g/dl (14.0-17.9); LYMPHOCYTES # (AUTO) 1.4 X10'3 (1.1-4.8); MEAN CORPUSCULAR HEMOGLOBIN 32.3 PG (27.0-31.0); MEAN CORPUSCULAR HGB CONC 32.9 g/dL (33.0-36.5); MEAN CORPUSCULAR VOLUME 98.2 FL (78-98); MEAN PLATELET VOLUME 7.9 FL (7.4-10.4); MONOCYTES # (AUTO) 0.8 X10'3 (0-0.9); MONOCYTES % (AUTO) 13.9 % (2-12); NEUTROPHILS # (AUTO) 3.6 X10'3 (1.8-7.7); NEUTROPHILS % (AUTO) 59.9 % (42-75); PLATELET COUNT 244 X10'3 (140-440); RED BLOOD COUNT 3.49 X10'6 (4.70-6.10); RED CELL DISTRIBUTION WIDTH 19.9 % (11.5-14.5); WHITE BLOOD COUNT 6.1 X10'3 (4.5-11.0)
[2023-08-17] MEDS ORDERED: normal saline 1,000 ML IV SCH (15:40)
[2023-08-17] MEDS ORDERED: diphenhydrAMINE 25mg capsule PO PRN (15:40)
[2023-08-17] MEDS ORDERED: LORazepam 0.5 MG tablet PO PRN (15:40)
[2023-08-17 15:43] LABS: ALBUMIN 2.9 G/DL (3.4-5.0); ANION GAP 8 (8-16); BLOOD UREA NITROGEN 21 MG/DL (7-18); BUN/CREATININE RATIO 5.2 (10.0-20.0); CALCIUM 8.2 MG/DL (8.5-10.1); CHLORIDE 101 MMOL/L (99-107); CREATININE 4.01 MG/DL (0.60-1.10); GLUCOSE 85 MG/DL (70-104); POTASSIUM 3.5 MMOL/L (3.5-5.1); SODIUM 144 MMOL/L (135-145); TOTAL CARBON DIOXIDE 34.9 MMOL/L (24-32); eCRCL 14 ML/MIN; eGFR 14 ML/MIN
[2023-08-17 15:44] LABS: INR 1.1 INR; PROTHROMBIN TIME 11.6 SECONDS (9.0-12.0)
[2023-08-17] MEDS ORDERED: heparin 1,000unit/ml 10ml vial 10 ML ONE (15:44)
[2023-08-17] MEDS ORDERED: DOPamine 400mg/D5W 250ml 0 ML IV ONE (15:44)
[2023-08-17] MEDS ORDERED: phenylephrine 10mg/ml inj. -priapism dosing ONE (15:44)
[2023-08-17] MEDS ORDERED: atropine 0.1mg/ml 10ml syringe ONE (15:44)
[2023-08-17] MEDS ORDERED: iohexol 350MG/ML 100ml bottle IV ONE (15:44)
[2023-08-17] MEDS ORDERED: LIDOcaine 1% (10mg/ml)w/preservative inj. 20ml MDV ONE (15:46)
[2023-08-17 16:12] LABS: ANISOCYTOSIS 2+; PLATELET ESTIMATE NORMAL
[2023-08-17 16:13] LABS: POIKILOCYTOSIS 1+
[2023-08-17] MEDS ORDERED: clopidogrel 300mg tablet ONE (18:32)
[2023-08-17] MEDS ORDERED: pseudoephedrine 30mg tablet PO PRN (19:15)
[2023-08-17] MEDS ORDERED: HYDROcodone/acetaminophen 10/325mg tab PO PRN (19:15)
[2023-08-17] MEDS ORDERED: hydrALAZINE 20mg/ml inj. IV PRN (19:15)
[2023-08-17] MEDS ORDERED: DOPamine 400mg/D5W 250ml 250 ML IV SCH (19:20)
[2023-08-17] MEDS ORDERED: ipratropium/albuterol 3ml nebule NEB PRN (19:20)
[2023-08-17] MEDS: HYDROcodone/acetaminophen 5mg/325mg tablet PO PRN (19:21)
[2023-08-17] MEDS ORDERED: aspirin 81mg, enteric-coated 1 TAB TABLET.DR PO SCH (21:00)
[2023-08-17] MEDS: furosemide 40mg tablet PO SCH (21:18)
[2023-08-17] MEDS: hydrALAZINE 25 MG tablet PO SCH (21:22)
[2023-08-17] MEDS: metoprolol tartrate 12.5mg (1/2 tablet) PO SCH (21:23)
[2023-08-18] VITALS (7 sets, daily range): BP systolic 118–189; BP diastolic 40–84; PULSE 55–97; RESP 17–22; TEMP 97.7–98.6; O2SAT 93–98
[2023-08-18] MEDS: furosemide 40mg tablet PO SCH (07:58)
[2023-08-18] MEDS: hydrALAZINE 25 MG tablet PO SCH (07:58)
[2023-08-18] MEDS: metoprolol tartrate 12.5mg (1/2 tablet) PO SCH (07:59)
[2023-08-18] MEDS ORDERED: clopidogrel 75mg tablet PO SCH (08:00)
[2023-08-18] MEDS ORDERED: NIFEdipine XL 30mg tablet PO SCH (08:00)
[2023-08-18] MEDS ORDERED: apixaban 2.5mg tablet PO SCH (08:00)
[2023-08-18] MEDS ORDERED: atorvastatin 10mg tablet PO SCH (08:00)
[2023-08-18] MEDS ORDERED: folic acid/vitamin B complex w/vitamin C 0.8mg tablet PO SCH (08:00)
[2023-08-18] MEDS ORDERED: furosemide 40mg tablet PO SCH (08:00)
[2023-08-18] MEDS ORDERED: furosemide 40mg/4ml inj IV ONE (12:35)
[2023-08-18] MEDS: HYDROcodone/acetaminophen 5mg/325mg tablet PO PRN (13:19)
== END 2023-08-18 13:48 | disposition home or self-care (01) | DRG 34 ==
LOC: SSTAY O 14:41 → PCU 3S 18:45 → SSTAY O 08-18 13:48
PROVIDERS: ADMIT Student in an Organized Health Care Education/Training Program; ATTEND Student in an Organized Health Care Education/Training Program
PROC: B3101ZZ Fluoroscopy of Thoracic Aorta using Low Osmolar Contrast (ICD-10-PCS; principal; 2023-08-17)
PROC: 037J34Z Dilation of Left Common Carotid Artery with Drug-eluting Intraluminal Device, Percutaneous Approach (ICD-10-PCS; 2023-08-17)
PROC: B41F1ZZ Fluoroscopy of Right Lower Extremity Arteries using Low Osmolar Contrast (ICD-10-PCS; 2023-08-17)
PROC: B3141ZZ Fluoroscopy of Left Common Carotid Artery using Low Osmolar Contrast (ICD-10-PCS; 2023-08-17)
PROC: B3171ZZ Fluoroscopy of Left Internal Carotid Artery using Low Osmolar Contrast (ICD-10-PCS; 2023-08-17)
PROC: B31B1ZZ Fluoroscopy of Left External Carotid Artery using Low Osmolar Contrast (ICD-10-PCS; 2023-08-17)
DX: I65.22 Occlusion and stenosis of left carotid artery (principal); N18.6 End stage renal disease; I73.9 Peripheral vascular disease, unspecified; E78.5 Hyperlipidemia, unspecified; I12.9 Hypertensive chronic kidney disease with stage 1 through stage 4 chronic kidney disease, or unspecified chronic kidney disease; I25.10 Atherosclerotic heart disease of native coronary artery without angina pectoris; J44.9 Chronic obstructive pulmonary disease, unspecified; N18.9 Chronic kidney disease, unspecified; I48.91 Unspecified atrial fibrillation; Z79.01 Long term (current) use of anticoagulants; Z79.899 Other long term (current) drug therapy
CPT/HCPCS: 36415; 37215; 80048; 85008; 85025; 85610; 93005; 94640; 94760; A6258; C1725; C1769; C1876; C1884; C1887; C1894; G0378; J0461; J1265; J1644; J1940; J2370; J3490; J7030; Q9967